=== PATIENT | male | born 1955 | race Caucasian/White ===

== ENCOUNTER 2017-02-20 13:07 | Emergency (ER) | payer MEDICARE ==
[~2017-02-20] VITALS: Ht 190.5 cm; Wt 117.0 kg
[~2017-02-20 13:07] MED LIST: ACET-3068 PO; DIAZ-351 PO; DIAZ10TA PO; FLO0.4C PO; PHEN-873 PO; VAL5T PO
[2017-02-20 14:19] VITALS: BP 122/84
[2017-02-20] MEDS ORDERED: oxymetazoline 15 ML nasal spray NS ONE (15:00)
[2017-02-20] MEDS ORDERED: AMOX-580 PO (15:28)
[2017-02-20] MEDS ORDERED: NEOM10DR45 OT (15:28)
[2017-02-20] MEDS ORDERED: AFRIN NS (15:28)
[2017-02-20] MEDS ORDERED: neomy sulf/polymyx B sulf/HC otic soln 10ml EACH EAR SCH (17:00)
== END 2017-02-20 15:54 | disposition home or self-care (01) ==
LOC: ER 13:08
DX: J01.00 Acute maxillary sinusitis, unspecified (principal); H66.93 Otitis media, unspecified, bilateral; R00.0 Tachycardia, unspecified; I10 Essential (primary) hypertension; E11.9 Type 2 diabetes mellitus without complications; G89.29 Other chronic pain; Z88.5 Allergy status to narcotic agent; Z88.8 Allergy status to other drugs, medicaments and biological substances; Z79.899 Other long term (current) drug therapy
CPT/HCPCS: 99283

== ENCOUNTER 2017-04-11 17:13 | Emergency (ER) | payer OTHER ==
[~2017-04-11] VITALS: Ht 190.5 cm; Wt 123.4 kg
[2017-04-11] MEDS ORDERED: ketorolac trometh inj. 60 MG/2 ML VIAL IM ONE (17:15)
[2017-04-11 17:17] VITALS: BP 158/97
== END 2017-04-11 17:28 | disposition home or self-care (01) ==
LOC: ER 17:14
DX: S39.012A Strain of muscle, fascia and tendon of lower back, initial encounter (principal); M62.830 Muscle spasm of back; G89.29 Other chronic pain; I10 Essential (primary) hypertension; E11.9 Type 2 diabetes mellitus without complications; Z88.5 Allergy status to narcotic agent; Z88.8 Allergy status to other drugs, medicaments and biological substances; Z79.899 Other long term (current) drug therapy; Z98.890 Other specified postprocedural states; X58.XXXA Exposure to other specified factors, initial encounter; Y93.89 Activity, other specified; Y92.89 Other specified places as the place of occurrence of the external cause; Y99.8 Other external cause status
CPT/HCPCS: 96372; 99283; J1885

== ENCOUNTER 2017-04-15 11:56 | Outpatient (CLI) | payer OTHER ==
[2017-04-15 12:52] LABS: BASOPHILS % (AUTO) 0.5 % (0-1); EOSINOPHILS # (AUTO) 0.2 X10'3 (0-0.9); HEMATOCRIT 44.2 % (42.0-52.0); HEMOGLOBIN 15.5 g/dl (14.0-17.9); LYMPHOCYTES # (AUTO) 2.1 X10'3 (1.1-4.8); LYMPHOCYTES % (AUTO) 27.2 % (21-51); MEAN CORPUSCULAR HEMOGLOBIN 32.3 PG (27.0-31.0); MEAN CORPUSCULAR HGB CONC 35.1 % (33.0-36.5); MEAN PLATELET VOLUME 8.6 FL (7.4-10.4); MONOCYTES # (AUTO) 0.6 X10'3 (0-0.9); MONOCYTES % (AUTO) 8.1 % (2-12); NEUTROPHILS # (AUTO) 4.7 X10'3 (1.8-7.7); NEUTROPHILS % (AUTO) 61.2 % (42-75); PLATELET COUNT 182 X10'3 (140-440); RED CELL DISTRIBUTION WIDTH 13.9 % (11.5-14.5); WHITE BLOOD COUNT 7.6 X10'3 (4.5-11.0)
[2017-04-15 12:59] LABS: CLARITY,URINE Clear (Clear); COLOR,URINE Yellow (Yellow); GLUCOSE, URINE Negative (Neg); KETONES,URINE Negative (Neg); LEUKOCYTE ESTERASE ,URINE Negative (Neg); NITRITES, URINE Negative (Neg); OCCULT BLOOD,URINE Negative (Neg); PROTEIN,URINE Negative (Neg)
[2017-04-15 13:02] LABS: UA COLLECTION TYPE NON-SPECIFIED
[2017-04-15 13:03] LABS: HEMOGLOBIN A1C 6.1 % (4.5-6.2)
[2017-04-15 13:18] LABS: ANION GAP 6 (8-16); BILIRUBIN,TOTAL 0.5 MG/DL (0.1-1.0); BLOOD UREA NITROGEN 27 MG/DL (7-18); BUN/CREATININE RATIO 25.5 (5.4-32.0); CHLORIDE 107 MMOL/L (99-107); CREATININE 1.06 MG/DL (0.60-1.10); GLUCOSE 89 MG/DL (70-104); POTASSIUM 4.4 MMOL/L (3.5-5.1); SODIUM 143 MMOL/L (135-145); TOTAL CARBON DIOXIDE 29.9 MMOL/L (24-32); eGFR 71 ML/MIN
[2017-04-15 13:19] LABS: ALANINE AMINOTRANSFERASE 39 U/L (12-78); ALBUMIN/GLOBULIN RATIO 1.3 (1.1-1.5); ALKALINE PHOSPHATASE 58 IU/L (46-116); ASPARTATE AMINO TRANSFERASE 20 U/L (10-37); CHOL/HDL RATIO 4.8 (0.00-4.99); CHOLESTEROL 177 MG/DL (0-200); HDL CHOLESTEROL 37 MG/DL (35-60); LDL CHOLESTEROL 123 MG/DL (50-100); TRIGLYCERIDES 168 MG/DL (20-135)
[2017-04-16 13:16] LABS: MICROALB/CRT, RATIO 10.4 mg/g creat (0.0-30.0)
== END 2017-04-15 23:59 ==
LOC: LAB 11:56
PROVIDERS: ATTEND Family Medicine
DX: E11.9 Type 2 diabetes mellitus without complications (principal); I10 Essential (primary) hypertension; N40.1 Benign prostatic hyperplasia with lower urinary tract symptoms
CPT/HCPCS: 36415; 80053; 80061; 81003; 82043; 82570; 83036; 84439; 84443; 85025

== ENCOUNTER → 2017-08-12 | Outpatient (CLI) | payer OTHER ==
[2017-08-13 12:52] LABS: BASOPHILS % (AUTO) 0.5 % (0-1); EOSINOPHILS # (AUTO) 0.1 X10'3 (0-0.9); EOSINOPHILS % (AUTO) 2.3 % (0-6); HEMATOCRIT 47.4 % (42.0-52.0); HEMOGLOBIN 16.3 g/dl (14.0-17.9); LYMPHOCYTES # (AUTO) 1.7 X10'3 (1.1-4.8); MEAN CORPUSCULAR HGB CONC 34.4 % (33.0-36.5); MEAN CORPUSCULAR VOLUME 93.2 FL (78-98); MEAN PLATELET VOLUME 8.6 FL (7.4-10.4); MONOCYTES # (AUTO) 0.5 X10'3 (0-0.9); MONOCYTES % (AUTO) 7.7 % (2-12); NEUTROPHILS # (AUTO) 3.6 X10'3 (1.8-7.7); NEUTROPHILS % (AUTO) 61.5 % (42-75); PLATELET COUNT 196 X10'3 (140-440); RED BLOOD COUNT 5.09 X10'6 (4.70-6.10); RED CELL DISTRIBUTION WIDTH 13.7 % (11.5-14.5); WHITE BLOOD COUNT 5.9 X10'3 (4.5-11.0)
[2017-08-13 13:03] LABS: CLARITY,URINE CLEAR (Clear); COLOR,URINE YELLOW (Yellow); GLUCOSE, URINE NEGATIVE (Neg); KETONES,URINE NEGATIVE (Neg); LEUKOCYTE ESTERASE ,URINE NEGATIVE (Neg); NITRITES, URINE NEGATIVE (Neg); OCCULT BLOOD,URINE NEGATIVE (Neg); PROTEIN,URINE NEGATIVE (Neg); UA COLLECTION TYPE VOIDED; UROBILINOGEN,URINE 0.2 E.U/dL (0.2-1.0)
[2017-08-13 13:05] LABS: HEMOGLOBIN A1C 6.4 % (4.5-6.2)
[2017-08-13 13:15] LABS: ALANINE AMINOTRANSFERASE 52 U/L (12-78); ALBUMIN 4.2 G/DL (3.4-5.0); ALBUMIN/GLOBULIN RATIO 1.3 (1.1-1.5); ALKALINE PHOSPHATASE 56 IU/L (46-116); ANION GAP 7 (8-16); ASPARTATE AMINO TRANSFERASE 21 U/L (10-37); BILIRUBIN,TOTAL 0.7 MG/DL (0.1-1.0); BLOOD UREA NITROGEN 20 MG/DL (7-18); BUN/CREATININE RATIO 18.3 (5.4-32.0); CALCIUM 9.4 MG/DL (8.5-10.1); CHLORIDE 104 MMOL/L (99-107); CHOL/HDL RATIO 5.1 (0.00-4.99); CHOLESTEROL 178 MG/DL (0-200); CREATININE 1.09 MG/DL (0.60-1.10); GLUCOSE 118 MG/DL (70-104); HDL CHOLESTEROL 35 MG/DL (35-60); LDL CHOLESTEROL 125 MG/DL (50-100); POTASSIUM 4.4 MMOL/L (3.5-5.1); SODIUM 139 MMOL/L (135-145); TOTAL CARBON DIOXIDE 28.5 MMOL/L (24-32); TOTAL PROTEIN 7.4 G/DL (6.4-8.2); TRIGLYCERIDES 97 MG/DL (20-135); eGFR 69 ML/MIN
== END ==
LOC: LAB 13:47
PROVIDERS: ATTEND Family Medicine
DX: E11.9 Type 2 diabetes mellitus without complications (principal); I10 Essential (primary) hypertension; E78.5 Hyperlipidemia, unspecified; R53.83 Other fatigue
CPT/HCPCS: 36415; 80053; 80061; 81003; 82043; 82570; 83036; 84439; 84443; 85025

== ENCOUNTER 2018-01-05 09:35 | Outpatient (CLI) | payer OTHER ==
[~2018-01-05 09:35] MED LIST changes: +DIAZ5TAB PO; +KETO10TA2 PO; +PHEN-786 PO; -PHEN-873 PO
[2018-01-05 10:48] LABS: BASOPHILS % (AUTO) 0.4 % (0-1); EOSINOPHILS # (AUTO) 0.1 X10'3 (0-0.9); HEMATOCRIT 47.1 % (42.0-52.0); HEMOGLOBIN 16.1 g/dl (14.0-17.9); LYMPHOCYTES # (AUTO) 1.6 X10'3 (1.1-4.8); LYMPHOCYTES % (AUTO) 24.8 % (21-51); MEAN CORPUSCULAR HEMOGLOBIN 31.7 PG (27.0-31.0); MEAN CORPUSCULAR HGB CONC 34.2 % (33.0-36.5); MEAN CORPUSCULAR VOLUME 92.8 FL (78-98); MEAN PLATELET VOLUME 8.9 FL (7.4-10.4); MONOCYTES # (AUTO) 0.4 X10'3 (0-0.9); MONOCYTES % (AUTO) 6.9 % (2-12); NEUTROPHILS # (AUTO) 4.2 X10'3 (1.8-7.7); NEUTROPHILS % (AUTO) 65.9 % (42-75); PLATELET COUNT 208 X10'3 (140-440); RED BLOOD COUNT 5.08 X10'6 (4.70-6.10); RED CELL DISTRIBUTION WIDTH 13.4 % (11.5-14.5); WHITE BLOOD COUNT 6.4 X10'3 (4.5-11.0)
[2018-01-05 10:56] LABS: ALANINE AMINOTRANSFERASE 63 U/L (12-78); ALBUMIN 3.8 G/DL (3.4-5.0); ALBUMIN/GLOBULIN RATIO 1.2 (1.1-1.5); ALKALINE PHOSPHATASE 62 IU/L (46-116); ANION GAP 8 (8-16); ASPARTATE AMINO TRANSFERASE 22 U/L (10-37); BILIRUBIN,TOTAL 0.7 MG/DL (0.1-1.0); BLOOD UREA NITROGEN 25 MG/DL (7-18); BUN/CREATININE RATIO 22.9 (5.4-32.0); CALCIUM 9.1 MG/DL (8.5-10.1); CHLORIDE 104 MMOL/L (99-107); CREATININE 1.09 MG/DL (0.60-1.10); GLUCOSE 134 MG/DL (70-104); POTASSIUM 4.1 MMOL/L (3.5-5.1); SODIUM 139 MMOL/L (135-145); TOTAL CARBON DIOXIDE 26.8 MMOL/L (24-32); eGFR 69 ML/MIN
[2018-01-05 15:23] LABS: MAGNESIUM 1.7 MG/DL (1.5-2.4)
[2018-01-05 15:27] LABS: HEMOGLOBIN A1C 6.5 % (4.5-6.2)
[2018-01-06 05:27] LABS: VITAMIN D, 25-HYDROXY 61.2 ng/mL (30.0-100.0)
[2018-01-06 06:19] LABS: PSA, ULTRASENSITIVE W/O SERIAL 2.46 ng/mL (0.000-4.000)
[2018-01-06 08:36] LABS: ESTRADIOL 40.7 pg/mL (7.6-42.6); SEX HORM BINDING GLOB, SERUM 39.1 nmol/L (19.3-76.4)
[2018-01-06 11:15] LABS: ACTH, PLASMA 35.2 pg/mL (7.2-63.3)
[2018-01-06] MEDS ORDERED: ACET1TAB12 PO (16:54)
[2018-01-06] MEDS ORDERED: DIAZ10TA PO (16:54)
[2018-01-06] MEDS ORDERED: KETO10TA2 PO (16:59)
== END 2018-01-05 23:59 | disposition home or self-care (01) ==
LOC: LAB 09:35
PROVIDERS: ATTEND Anesthesiology
DX: N40.0 Benign prostatic hyperplasia without lower urinary tract symptoms (principal); D50.9 Iron deficiency anemia, unspecified; R79.1 Abnormal coagulation profile; R35.1 Nocturia; E34.9 Endocrine disorder, unspecified; N53.9 Unspecified male sexual dysfunction; E29.9 Testicular dysfunction, unspecified; E29.1 Testicular hypofunction; E55.9 Vitamin D deficiency, unspecified; E27.40 Unspecified adrenocortical insufficiency; E27.9 Disorder of adrenal gland, unspecified; I10 Essential (primary) hypertension; E11.9 Type 2 diabetes mellitus without complications
CPT/HCPCS: 36415; 80053; 82024; 82306; 82533; 82670; 82679; 83036; 83735; 84153; 84270; 84305; 85025

== ENCOUNTER 2018-01-06 15:44 | Emergency (ER) | payer OTHER ==
[~2018-01-06] VITALS: Ht 190.5 cm; Wt 126.4 kg
[2018-01-06 15:48] VITALS: BP 151/94
[2018-01-06] MEDS ORDERED: ketorolac trometh inj. 60 MG/2 ML VIAL IM ONE (15:50)
[2018-01-06] MEDS ORDERED: DIAZ10TA PO (16:54)
[2018-01-06] MEDS ORDERED: ACET1TAB12 PO (16:54)
[2018-01-06] MEDS ORDERED: KETO10TA2 PO (16:59)
== END 2018-01-06 17:15 | disposition home or self-care (01) ==
LOC: ER 15:44
DX: M54.5 Low back pain (principal); I10 Essential (primary) hypertension; E11.9 Type 2 diabetes mellitus without complications; G89.29 Other chronic pain; Z98.890 Other specified postprocedural states; Z88.5 Allergy status to narcotic agent; Z88.8 Allergy status to other drugs, medicaments and biological substances; Z79.899 Other long term (current) drug therapy
CPT/HCPCS: 96372; 99283; J1885; 99284

== ENCOUNTER 2018-02-25 01:48 | Emergency (ER) | payer OTHER ==
[~2018-02-25] VITALS: Ht 190.5 cm; Wt 132.0 kg
[~2018-02-25 01:48] MED LIST changes: +ACET1TAB12 PO
[2018-02-25 01:52] VITALS: BP 109/67
[2018-02-25] MEDS ORDERED: DICL50TA8 PO (01:52)
[2018-02-25] MEDS ORDERED: ketorolac trometh inj. 60 MG/2 ML VIAL IM ONE (01:55)
== END 2018-02-25 02:40 | disposition home or self-care (01) ==
LOC: ER 01:49
DX: M25.512 Pain in left shoulder (principal); I10 Essential (primary) hypertension; E11.9 Type 2 diabetes mellitus without complications; G89.29 Other chronic pain; Z98.890 Other specified postprocedural states; Z88.5 Allergy status to narcotic agent; Z88.8 Allergy status to other drugs, medicaments and biological substances; Z79.899 Other long term (current) drug therapy
CPT/HCPCS: 96372; 99283; J1885

== ENCOUNTER 2018-05-03 17:31 | Emergency (ER) | payer OTHER ==
[~2018-05-03] VITALS: Ht 190.5 cm; Wt 126.0 kg
[~2018-05-03 17:31] MED LIST changes: +DICL50TA8 PO
[2018-05-03 17:34] VITALS: BP 197/95
[2018-05-03] MEDS ORDERED: HYDR-3965 PO (18:31)
[2018-05-03] MEDS ORDERED: TETanus/Pertussis (Acell)/Diphther VAC/PF (Tdap-Adult) 0.5ml syringe IM ONE (18:35)
[2018-05-03] MEDS ORDERED: LIDOcaine 1% w/epiNEPHrine 1:200,000 30ml vial IM ONE (18:35)
[2018-05-04] MEDS ORDERED: LOSA1TAB9 PO (16:00)
[2018-05-04] MEDS ORDERED: METF500T PO (16:00)
== END 2018-05-03 18:52 | disposition home or self-care (01) ==
LOC: ER 17:31
DX: S61.011A Laceration without foreign body of right thumb without damage to nail, initial encounter (principal); I10 Essential (primary) hypertension; E11.9 Type 2 diabetes mellitus without complications; G89.29 Other chronic pain; Z98.890 Other specified postprocedural states; Z88.5 Allergy status to narcotic agent; Z88.8 Allergy status to other drugs, medicaments and biological substances; Z79.899 Other long term (current) drug therapy; W26.8XXA Contact with other sharp object(s), not elsewhere classified, initial encounter; Y93.89 Activity, other specified; Y92.89 Other specified places as the place of occurrence of the external cause; Y99.8 Other external cause status
CPT/HCPCS: 12002; 90471; 90715; 99283

== ENCOUNTER 2018-05-05 05:25 | Day surgery (SDC) | payer OTHER ==
[~2018-05-05] VITALS: Ht 190.5 cm; Wt 127.1 kg
[~2018-05-05 05:25] MED LIST changes: -ACET-3068 PO; -ACET1TAB12 PO; -DIAZ-351 PO; -DIAZ10TA PO; -DIAZ5TAB PO; +HYDR-3965 PO; -KETO10TA2 PO; +LOSA1TAB9 PO; +METF500T PO; -PHEN-786 PO; +ringers solution, lacted 1,000 ML IV SCH
[2018-05-05] MEDS ORDERED: ceFAZolin 2gm in dextrose, iso 100 ML IV ONE (05:30)
[2018-05-05] MEDS ORDERED: famotidine 20mg tablet PO ONE (05:30)
[2018-05-05] MEDS ORDERED: FINA5TAB11 PO (06:12)
[2018-05-05] MEDS ORDERED: BUPIVAcaine/PF 2.5mg/ml (0.25%) 10ml vial ONE (06:50)
[2018-05-05 06:53] LABS: BASOPHILS % (AUTO) 0.6 % (0-1); EOSINOPHILS # (AUTO) 0.3 X10'3 (0-0.9); EOSINOPHILS % (AUTO) 3.7 % (0-6); LYMPHOCYTES # (AUTO) 1.5 X10'3 (1.1-4.8); LYMPHOCYTES % (AUTO) 21.7 % (21-51); MEAN CORPUSCULAR HEMOGLOBIN 31.5 PG (27.0-31.0); MEAN CORPUSCULAR HGB CONC 33.6 g/dL (33.0-36.5); MEAN CORPUSCULAR VOLUME 93.6 FL (78-98); MEAN PLATELET VOLUME 8.8 FL (7.4-10.4); MONOCYTES # (AUTO) 0.6 X10'3 (0-0.9); MONOCYTES % (AUTO) 8.2 % (2-12); NEUTROPHILS # (AUTO) 4.6 X10'3 (1.8-7.7); NEUTROPHILS % (AUTO) 65.8 % (42-75); PRE OP HEMATOCRIT 52.8 % (42.0-52.0); PRE OP HEMOGLOBIN 17.8 g/dL (14.0-17.9); PRE OP PLATELET COUNT 186 X10'3 (140-440); RED BLOOD COUNT 5.64 X10'6 (4.70-6.10); RED CELL DISTRIBUTION WIDTH 13.9 % (11.5-14.5)
[2018-05-05] MEDS ORDERED: LIDOcaine 0.5% (5mg/ml) 50ml vial ONE (06:56)
[2018-05-05] MEDS ORDERED: fentaNYL/PF 50MCG/1 ML 2ML syringe ONE (07:06)
[2018-05-05] MEDS ORDERED: MIDAZolam 5mg/5ml vial ONE (07:07)
[2018-05-05 07:09] LABS: ALBUMIN 3.7 G/DL (3.4-5.0); ALBUMIN/GLOBULIN RATIO 1.2 (1.1-1.5); ALKALINE PHOSPHATASE 67 IU/L (46-116); BLOOD UREA NITROGEN 21 MG/DL (7-18); BUN/CREATININE RATIO 17.6 (5.4-32.0); CALCIUM 9.2 MG/DL (8.5-10.1); CHLORIDE 104 MMOL/L (99-107); CREATININE 1.19 MG/DL (0.60-1.10); PRE OP ALT 38 U/L (30-65); PRE OP ANION GAP 8 (8-16); PRE OP AST 16 U/L (10-37); PRE OP BILIRUB, TOTAL 0.6 MG/DL (0.0-1.0); PRE OP GLUCOSE 125 MG/DL (70-104); PRE OP POTASSIUM 4.3 MMOL/L (3.4-5.1); PRE OP SODIUM 140 MMOL/L (135-145); TOTAL PROTEIN 6.8 G/DL (6.4-8.2); eGFR 62 ML/MIN
[2018-05-05] MEDS ORDERED: LIDOcaine 1%/PF 5ML 10 MG/ML VIAL ONE (07:41)
[2018-05-05] MEDS ORDERED: propofol inj 20 ML IV ONE (07:41)
[2018-05-05] MEDS ORDERED: hydrALAZINE 20mg/ml inj. IV ONE (07:41)
[2018-05-05] MEDS ORDERED: ringers solution, lacted 1,000 ML IV SCH (07:48)
[2018-05-05] MEDS ORDERED: ondansetron/PF 4mg/2ml inj IV PRN (07:50)
[2018-05-05] MEDS ORDERED: morphine 4 MG/ML inj SYRINge IV PRN ×2 (07:50)
[2018-05-05] MEDS ORDERED: meperidine/PF 25mg/ml syringe IV PRN ×3 (07:50)
[2018-05-05] MEDS ORDERED: proCHLORperazine 10 MG/2 ml inj IV PRN (07:50)
[2018-05-05 08:02] VITALS: BP 141/78
--- NOTE | 2018-05-05 08:02 | NUR ---
Received from OR via [facility] , accompanied by Anesthesiologist ARIADNE and report given by Anesthesiolgist. PATIENT WITH 20G PIV IN LEFT UE RUNNING LR AT 100. DENIES PAIN. SPLINT TO RIGHT UE WITH NO DRAINAGE PRESENT. PATIENT VSS. Addendum: 05/05/18 at 0811 by Anton Griffin RN, RN Amended: Links added.
[2018-05-05 08:12] VITALS: BP 113/70
[2018-05-05 08:22] VITALS: BP 132/75
[2018-05-05 08:32] VITALS: BP 134/71
[2018-05-05 10:47] VITALS: BP 143/93
[2018-05-05 10:50] VITALS: BP 143/93
== END 2018-05-05 08:42 | disposition home or self-care (01) ==
LOC: PAS 05:25
PROVIDERS: ATTEND Orthopaedic Surgery Hand Surgery
DX: S66.021A Laceration of long flexor muscle, fascia and tendon of right thumb at wrist and hand level, initial encounter (principal); G47.30 Sleep apnea, unspecified; E11.9 Type 2 diabetes mellitus without complications; Y93.89 Activity, other specified; Y92.89 Other specified places as the place of occurrence of the external cause; Y99.8 Other external cause status; W45.8XXA Other foreign body or object entering through skin, initial encounter; Z79.899 Other long term (current) drug therapy; Z88.8 Allergy status to other drugs, medicaments and biological substances; Z98.890 Other specified postprocedural states; M54.5 Low back pain; G89.29 Other chronic pain
CPT/HCPCS: 26356; 36415; 80053; 82948; 85025; 93005; A6222; A6449; J0360; J0690; J2001; J2250; J2704; J3010; J3490; J7120; A7000

== ENCOUNTER 2018-07-11 08:24 | Outpatient (CLI) | payer OTHER ==
[~2018-07-11 08:24] MED LIST changes: -DICL50TA8 PO; +FINA5TAB11 PO; -HYDR-3965 PO; -ringers solution, lacted 1,000 ML IV SCH
[2018-07-11 09:10] LABS: BASOPHILS # (AUTO) 0.1 X10'3 (0-0.2); BASOPHILS % (AUTO) 0.9 % (0-1); EOSINOPHILS # (AUTO) 0.1 X10'3 (0-0.9); EOSINOPHILS % (AUTO) 2.4 % (0-6); HEMOGLOBIN 16.7 g/dl (14.0-17.9); LYMPHOCYTES # (AUTO) 1.1 X10'3 (1.1-4.8); LYMPHOCYTES % (AUTO) 18.7 % (21-51); MEAN CORPUSCULAR HEMOGLOBIN 31.6 PG (27.0-31.0); MEAN CORPUSCULAR HGB CONC 34.7 g/dL (33.0-36.5); MEAN PLATELET VOLUME 8.5 FL (7.4-10.4); MONOCYTES # (AUTO) 0.5 X10'3 (0-0.9); NEUTROPHILS # (AUTO) 4.1 X10'3 (1.8-7.7); PLATELET COUNT 193 X10'3 (140-440); RED BLOOD COUNT 5.27 X10'6 (4.70-6.10); RED CELL DISTRIBUTION WIDTH 15.3 % (11.5-14.5)
[2018-07-11 09:31] LABS: ALANINE AMINOTRANSFERASE 47 U/L (12-78); ALBUMIN 3.9 G/DL (3.4-5.0); ALBUMIN/GLOBULIN RATIO 1.2 (1.1-1.5); ALKALINE PHOSPHATASE 60 IU/L (46-116); ANION GAP 7 (8-16); ASPARTATE AMINO TRANSFERASE 22 U/L (10-37); BILIRUBIN,TOTAL 0.6 MG/DL (0.1-1.0); BLOOD UREA NITROGEN 17 MG/DL (7-18); BUN/CREATININE RATIO 14.3 (5.4-32.0); CHLORIDE 104 MMOL/L (99-107); CREATININE 1.19 MG/DL (0.60-1.10); GLUCOSE 110 MG/DL (70-104); SODIUM 138 MMOL/L (135-145); TOTAL CARBON DIOXIDE 27.2 MMOL/L (24-32); TOTAL PROTEIN 7.2 G/DL (6.4-8.2); eGFR 62 ML/MIN
[2018-07-12 08:18] LABS: ESTRADIOL 66.7 pg/mL (7.6-42.6)
[2018-07-12 13:33] LABS: PSA, ULTRASENSITIVE W/O SERIAL 5.56 ng/mL (0.000-4.000)
== END 2018-07-11 23:59 | disposition home or self-care (01) ==
LOC: LAB 08:24
PROVIDERS: ATTEND Anesthesiology
DX: D50.9 Iron deficiency anemia, unspecified (principal); N40.0 Benign prostatic hyperplasia without lower urinary tract symptoms; E29.1 Testicular hypofunction; R68.89 Other general symptoms and signs
CPT/HCPCS: 36415; 80053; 82670; 82679; 83036; 83735; 84153; 85025

== ENCOUNTER 2018-09-15 08:20 | Outpatient (CLI) | payer OTHER ==
[2018-09-15 08:50] LABS: BASOPHILS # (AUTO) 0.1 X10'3 (0-0.2); EOSINOPHILS # (AUTO) 0.2 X10'3 (0-0.9); EOSINOPHILS % (AUTO) 3.2 % (0-6); HEMATOCRIT 48.8 % (42.0-52.0); HEMOGLOBIN 16.6 g/dl (14.0-17.9); LYMPHOCYTES # (AUTO) 1.5 X10'3 (1.1-4.8); LYMPHOCYTES % (AUTO) 22.8 % (21-51); MEAN CORPUSCULAR HEMOGLOBIN 31.9 PG (27.0-31.0); MEAN CORPUSCULAR HGB CONC 34.1 g/dL (33.0-36.5); MEAN CORPUSCULAR VOLUME 93.6 FL (78-98); MONOCYTES # (AUTO) 0.4 X10'3 (0-0.9); MONOCYTES % (AUTO) 6.2 % (2-12); NEUTROPHILS # (AUTO) 4.5 X10'3 (1.8-7.7); NEUTROPHILS % (AUTO) 66.8 % (42-75); PLATELET COUNT 182 X10'3 (140-440); RED BLOOD COUNT 5.22 X10'6 (4.70-6.10); RED CELL DISTRIBUTION WIDTH 14.9 % (11.5-14.5); WHITE BLOOD COUNT 6.8 X10'3 (4.5-11.0)
[2018-09-15 09:17] LABS: ALANINE AMINOTRANSFERASE 36 U/L (12-78); ALBUMIN 3.8 G/DL (3.4-5.0); ALBUMIN/GLOBULIN RATIO 1.2 (1.1-1.5); ALKALINE PHOSPHATASE 60 IU/L (46-116); ANION GAP 9 (8-16); ASPARTATE AMINO TRANSFERASE 16 U/L (10-37); BILIRUBIN,TOTAL 0.6 MG/DL (0.1-1.0); BLOOD UREA NITROGEN 22 MG/DL (7-18); BUN/CREATININE RATIO 17.7 (5.4-32.0); CALCIUM 9.2 MG/DL (8.5-10.1); CHLORIDE 104 MMOL/L (99-107); CREATININE 1.24 MG/DL (0.60-1.10); GLUCOSE 193 MG/DL (70-104); POTASSIUM 4.1 MMOL/L (3.5-5.1); SODIUM 139 MMOL/L (135-145); TOTAL CARBON DIOXIDE 26.3 MMOL/L (24-32); eGFR 59 ML/MIN
[2018-09-16 13:09] LABS: PSA, ULTRASENSITIVE W/O SERIAL 4.09 ng/mL (0.000-4.000)
== END 2018-09-15 23:59 | disposition home or self-care (01) ==
LOC: LAB 08:20
PROVIDERS: ATTEND Anesthesiology
DX: D50.9 Iron deficiency anemia, unspecified (principal); R68.89 Other general symptoms and signs; E29.1 Testicular hypofunction; N40.0 Benign prostatic hyperplasia without lower urinary tract symptoms
CPT/HCPCS: 36415; 80053; 82670; 82679; 84153; 85025

== ENCOUNTER 2018-11-24 04:02 | Emergency (ER) | payer OTHER ==
[~2018-11-24] VITALS: Ht 190.5 cm; Wt 102.6 kg
[2018-11-24 04:03] VITALS: BP 149/96
[2018-11-24 04:26] LABS: UA COLLECTION TYPE VOIDED
[2018-11-24 04:27] LABS: CLARITY,URINE SLIGHTLY CLOUDY (Clear); COLOR,URINE YELLOW (Yellow); GLUCOSE, URINE 100 mg/dl (Neg); KETONES,URINE NEGATIVE (Neg); LEUKOCYTE ESTERASE ,URINE SMALL (Neg); NITRITES, URINE POSITIVE (Neg); OCCULT BLOOD,URINE NEGATIVE (Neg); PROTEIN,URINE NEGATIVE (Neg)
[2018-11-24 04:34] LABS: BACTERIA,URINE 3+ /HPF (Neg); MUCUS STRANDS NONE SEEN /LPF (Neg); RBC,URINE NONE SEEN /HPF (0-2); SQUAMOUS EPITHELIAL CELL,UR NONE SEEN /LPF (FEW)
[2018-11-24] MEDS ORDERED: nitrofuran/nitrofuran macrocrysal 100 MG capsule PO ONE (05:00)
[2018-11-24] MEDS ORDERED: phenazopyridine 100mg tablet PO ONE (05:00)
[2018-11-24] MEDS ORDERED: PHEN-716 PO (05:12)
[2018-11-24] MEDS ORDERED: NITR100C6 PO (05:12)
== END 2018-11-24 05:21 | disposition home or self-care (01) ==
LOC: ER 04:02
DX: N39.0 Urinary tract infection, site not specified (principal); I10 Essential (primary) hypertension; E11.9 Type 2 diabetes mellitus without complications; G89.29 Other chronic pain; Z98.890 Other specified postprocedural states; Z88.5 Allergy status to narcotic agent; Z88.8 Allergy status to other drugs, medicaments and biological substances; Z79.84 Long term (current) use of oral hypoglycemic drugs; Z79.899 Other long term (current) drug therapy
CPT/HCPCS: 81001; 87077; 87088; 87186; 99283

== ENCOUNTER 2018-12-03 00:45 | Emergency (ER) | payer OTHER ==
[~2018-12-03] VITALS: Ht 190.5 cm; Wt 132.0 kg
[~2018-12-03 00:45] MED LIST changes: +NITR100C6 PO; +PHEN-716 PO
[2018-12-03 00:46] VITALS: BP 158/103
[2018-12-03 01:37] LABS: CLARITY,URINE CLOUDY (Clear); COLOR,URINE AMBER (Yellow); GLUCOSE, URINE NEGATIVE (Neg); KETONES,URINE TRACE mg/dl (Neg); LEUKOCYTE ESTERASE ,URINE SMALL (Neg); NITRITES, URINE POSITIVE (Neg); OCCULT BLOOD,URINE SMALL (Neg); PH,URINE 6.5 (4.8-8.0); PROTEIN,URINE TRACE mg/dl (Neg)
[2018-12-03 01:39] LABS: UA COLLECTION TYPE CLN CATCH MIDSTREAM
[2018-12-03 01:46] LABS: BACTERIA,URINE 4+ /HPF (Neg); MUCUS STRANDS NONE SEEN /LPF (Neg); SQUAMOUS EPITHELIAL CELL,UR NONE SEEN /LPF (FEW); WBC,URINE 50-100 /HPF (0-4)
[2018-12-03] MEDS ORDERED: SULF1TAB49 PO (01:47)
--- NOTE | 2018-12-07 19:22 | NUR ---
ATTEMPTED TO CALL PATIENT WITH REGARD TO URINE CULTURE RESULT AND NEED FOR ABX MACROBID 100 MG PO BID X 7 DAYS.
== END 2018-12-03 01:58 | disposition home or self-care (01) ==
LOC: ER 00:46
DX: N39.0 Urinary tract infection, site not specified (principal); I10 Essential (primary) hypertension; G47.30 Sleep apnea, unspecified; E11.9 Type 2 diabetes mellitus without complications; G89.29 Other chronic pain; Z98.890 Other specified postprocedural states; Z88.5 Allergy status to narcotic agent; Z88.8 Allergy status to other drugs, medicaments and biological substances; Z79.899 Other long term (current) drug therapy; Z79.84 Long term (current) use of oral hypoglycemic drugs
CPT/HCPCS: 81001; 87077; 87088; 87186; 99283

== ENCOUNTER 2018-12-20 11:16 | Outpatient (CLI) | payer OTHER ==
[2018-12-20 12:10] LABS: BASOPHILS # (AUTO) 0.1 X10'3 (0-0.2); BASOPHILS % (AUTO) 0.8 % (0-1); EOSINOPHILS # (AUTO) 0.2 X10'3 (0-0.9); EOSINOPHILS % (AUTO) 3.6 % (0-6); HEMATOCRIT 51.6 % (42.0-52.0); HEMOGLOBIN 17.7 g/dl (14.0-17.9); LYMPHOCYTES # (AUTO) 1.3 X10'3 (1.1-4.8); LYMPHOCYTES % (AUTO) 19.7 % (21-51); MEAN CORPUSCULAR HEMOGLOBIN 32.1 PG (27.0-31.0); MEAN CORPUSCULAR HGB CONC 34.3 g/dL (33.0-36.5); MEAN CORPUSCULAR VOLUME 93.8 FL (78-98); MEAN PLATELET VOLUME 8.5 FL (7.4-10.4); MONOCYTES # (AUTO) 0.5 X10'3 (0-0.9); MONOCYTES % (AUTO) 7.2 % (2-12); NEUTROPHILS # (AUTO) 4.6 X10'3 (1.8-7.7); NEUTROPHILS % (AUTO) 68.7 % (42-75); PLATELET COUNT 185 X10'3 (140-440); RED CELL DISTRIBUTION WIDTH 14.2 % (11.5-14.5); WHITE BLOOD COUNT 6.8 X10'3 (4.5-11.0)
[2018-12-20 12:32] LABS: ALANINE AMINOTRANSFERASE 37 U/L (12-78); ALBUMIN 3.8 G/DL (3.4-5.0); ALBUMIN/GLOBULIN RATIO 1.1 (1.1-1.5); ALKALINE PHOSPHATASE 51 IU/L (46-116); ANION GAP 7 (8-16); ASPARTATE AMINO TRANSFERASE 22 U/L (10-37); BILIRUBIN,TOTAL 0.8 MG/DL (0.1-1.0); BLOOD UREA NITROGEN 26 MG/DL (7-18); BUN/CREATININE RATIO 21.3 (5.4-32.0); CHLORIDE 105 MMOL/L (99-107); CREATININE 1.22 MG/DL (0.60-1.10); GLUCOSE 121 MG/DL (70-104); POTASSIUM 4.1 MMOL/L (3.5-5.1); SODIUM 139 MMOL/L (135-145); TOTAL CARBON DIOXIDE 27.2 MMOL/L (24-32); TOTAL PROTEIN 7.3 G/DL (6.4-8.2); eGFR 60 ML/MIN
[2018-12-20 12:46] LABS: MAGNESIUM 1.9 MG/DL (1.5-2.4)
[2018-12-20 12:52] LABS: HEMOGLOBIN A1C 6.2 % (4.5-6.2)
[2018-12-21 07:19] LABS: ESTRADIOL 28.1 pg/mL (7.6-42.6)
[2018-12-21 11:54] LABS: PSA, ULTRASENSITIVE W/O SERIAL 6.96 ng/mL (0.000-4.000)
== END 2018-12-20 23:59 | disposition home or self-care (01) ==
LOC: LAB 11:16
PROVIDERS: ATTEND Anesthesiology
DX: D50.9 Iron deficiency anemia, unspecified (principal); E29.1 Testicular hypofunction; E29.9 Testicular dysfunction, unspecified; N40.0 Benign prostatic hyperplasia without lower urinary tract symptoms; I10 Essential (primary) hypertension; R68.89 Other general symptoms and signs; R79.1 Abnormal coagulation profile; R73.01 Impaired fasting glucose; R53.81 Other malaise; R53.83 Other fatigue
CPT/HCPCS: 36415; 80053; 82670; 82679; 83036; 83735; 84153; 85025

== ENCOUNTER 2019-01-01 06:45 | Outpatient (CLI) | payer OTHER ==
[2019-01-02 11:48] LABS: % FREE PSA 22.8 % (.); PSA, FREE 1.3 ng/mL
== END 2019-01-01 23:59 | disposition home or self-care (01) ==
LOC: LAB 06:45
PROVIDERS: ATTEND Anesthesiology
DX: N40.0 Benign prostatic hyperplasia without lower urinary tract symptoms (principal); R97.20 Elevated prostate specific antigen [PSA]; I10 Essential (primary) hypertension; E11.9 Type 2 diabetes mellitus without complications
CPT/HCPCS: 36415; 84153; 84154

== ENCOUNTER 2019-02-07 08:01 | Outpatient (CLI) | payer OTHER ==
[2019-02-07 08:56] LABS: BASOPHILS % (AUTO) 0.8 % (0-1); EOSINOPHILS # (AUTO) 0.3 X10'3 (0-0.9); EOSINOPHILS % (AUTO) 4.4 % (0-6); HEMATOCRIT 49.9 % (42.0-52.0); HEMOGLOBIN 17.5 g/dl (14.0-17.9); LYMPHOCYTES # (AUTO) 1.6 X10'3 (1.1-4.8); MEAN CORPUSCULAR HGB CONC 35.1 g/dL (33.0-36.5); MEAN CORPUSCULAR VOLUME 91.3 FL (78-98); MEAN PLATELET VOLUME 8.9 FL (7.4-10.4); MONOCYTES # (AUTO) 0.5 X10'3 (0-0.9); MONOCYTES % (AUTO) 7.8 % (2-12); NEUTROPHILS # (AUTO) 3.8 X10'3 (1.8-7.7); PLATELET COUNT 195 X10'3 (140-440); RED BLOOD COUNT 5.47 X10'6 (4.70-6.10); RED CELL DISTRIBUTION WIDTH 14.2 % (11.5-14.5); WHITE BLOOD COUNT 6.2 X10'3 (4.5-11.0)
[2019-02-07 08:57] LABS: ALANINE AMINOTRANSFERASE 35 U/L (12-78); ALBUMIN 3.9 G/DL (3.4-5.0); ALBUMIN/GLOBULIN RATIO 1.3 (1.1-1.5); ALKALINE PHOSPHATASE 52 IU/L (46-116); ANION GAP 6 (8-16); ASPARTATE AMINO TRANSFERASE 16 U/L (10-37); BILIRUBIN,TOTAL 0.6 MG/DL (0.1-1.0); BLOOD UREA NITROGEN 21 MG/DL (7-18); BUN/CREATININE RATIO 18.1 (5.4-32.0); CALCIUM 8.6 MG/DL (8.5-10.1); CHLORIDE 105 MMOL/L (99-107); CREATININE 1.16 MG/DL (0.60-1.10); GLUCOSE 119 MG/DL (70-104); MAGNESIUM 1.8 MG/DL (1.5-2.4); POTASSIUM 3.9 MMOL/L (3.5-5.1); SODIUM 139 MMOL/L (135-145); TOTAL CARBON DIOXIDE 28.5 MMOL/L (24-32); eGFR 64 ML/MIN
[2019-02-08 14:53] LABS: ESTRADIOL 14.2 pg/mL (7.6-42.6); PSA, ULTRASENSITIVE W/O SERIAL 5.35 ng/mL (0.000-4.000)
== END 2019-02-07 23:59 | disposition home or self-care (01) ==
LOC: LAB 08:01
PROVIDERS: ATTEND Anesthesiology
DX: D50.9 Iron deficiency anemia, unspecified (principal); R68.89 Other general symptoms and signs; R79.1 Abnormal coagulation profile; R73.01 Impaired fasting glucose; I10 Essential (primary) hypertension; N40.0 Benign prostatic hyperplasia without lower urinary tract symptoms; E29.1 Testicular hypofunction; E29.9 Testicular dysfunction, unspecified
CPT/HCPCS: 36415; 80053; 82670; 82679; 83735; 84153; 85025

== ENCOUNTER 2019-08-02 19:57 | Emergency (ER) | payer OTHER ==
[~2019-08-02] VITALS: Ht 190.5 cm; Wt 124.8 kg
[2019-08-02 19:59] VITALS: BP 160/95
[2019-08-02] MEDS ORDERED: ketorolac tromethamine 15mg/ml inj. IM ONE (20:10)
[2019-08-02] MEDS ORDERED: DICL100G30 TOP (20:25)
[2019-08-02] MEDS ORDERED: METH-360 PO (20:25)
== END 2019-08-02 20:31 | disposition home or self-care (01) ==
LOC: ER 19:57
DX: M54.5 Low back pain (principal); I10 Essential (primary) hypertension; E11.9 Type 2 diabetes mellitus without complications; G89.29 Other chronic pain; Z87.440 Personal history of urinary (tract) infections; Z98.890 Other specified postprocedural states; Z88.5 Allergy status to narcotic agent; Z88.8 Allergy status to other drugs, medicaments and biological substances; Z79.899 Other long term (current) drug therapy
CPT/HCPCS: 96372; 99283; J1885

== ENCOUNTER 2019-09-10 09:16 | Outpatient (CLI) | payer BC, OTHER ==
[~2019-09-10 09:16] MED LIST changes: +DICL100G30 TOP; +METH-360 PO
[2019-09-10 10:02] LABS: BASOPHILS % (AUTO) 0.7 % (0-1); EOSINOPHILS # (AUTO) 0.3 X10'3 (0-0.9); EOSINOPHILS % (AUTO) 4.3 % (0-6); HEMATOCRIT 51.3 % (42.0-52.0); HEMOGLOBIN 17.4 g/dl (14.0-17.9); LYMPHOCYTES # (AUTO) 1.2 X10'3 (1.1-4.8); LYMPHOCYTES % (AUTO) 20.2 % (21-51); MEAN CORPUSCULAR HEMOGLOBIN 32.5 PG (27.0-31.0); MEAN CORPUSCULAR HGB CONC 33.9 g/dL (33.0-36.5); MEAN CORPUSCULAR VOLUME 95.9 FL (78-98); MONOCYTES # (AUTO) 0.4 X10'3 (0-0.9); MONOCYTES % (AUTO) 7.6 % (2-12); NEUTROPHILS # (AUTO) 3.9 X10'3 (1.8-7.7); NEUTROPHILS % (AUTO) 67.2 % (42-75); PLATELET COUNT 158 X10'3 (140-440); RED BLOOD COUNT 5.34 X10'6 (4.70-6.10); RED CELL DISTRIBUTION WIDTH 13.8 % (11.5-14.5); WHITE BLOOD COUNT 5.8 X10'3 (4.5-11.0)
[2019-09-10 10:04] LABS: ALBUMIN 3.9 G/DL (3.4-5.0); ALBUMIN/GLOBULIN RATIO 1.2 (1.1-1.5); ANION GAP 7 (8-16); ASPARTATE AMINO TRANSFERASE 14 U/L (10-37); BILIRUBIN,TOTAL 0.5 MG/DL (0.1-1.0); BLOOD UREA NITROGEN 18 MG/DL (7-18); BUN/CREATININE RATIO 15.4 (5.4-32.0); CALCIUM 8.9 MG/DL (8.5-10.1); CHLORIDE 105 MMOL/L (99-107); CREATININE 1.17 MG/DL (0.60-1.10); GLUCOSE 113 MG/DL (70-104); MAGNESIUM 1.8 MG/DL (1.5-2.4); POTASSIUM 4.4 MMOL/L (3.5-5.1); SODIUM 138 MMOL/L (135-145); TOTAL CARBON DIOXIDE 26.2 MMOL/L (24-32); TOTAL PROTEIN 7.1 G/DL (6.4-8.2); eGFR 63 ML/MIN
[2019-09-10 10:05] LABS: ALANINE AMINOTRANSFERASE 29 U/L (12-78); ALKALINE PHOSPHATASE 55 IU/L (46-116)
[2019-09-11 16:22] LABS: PSA, ULTRASENSITIVE W/O SERIAL 5.35 ng/mL (0.000-4.000)
== END 2019-09-10 23:59 | disposition home or self-care (01) ==
LOC: LAB 09:16
PROVIDERS: ATTEND Anesthesiology
DX: E23.0 Hypopituitarism (principal)
CPT/HCPCS: 36415; 80053; 82670; 82679; 83036; 83735; 84153; 84305; 84410; 85025

== ENCOUNTER → 2019-11-29 | Outpatient (CLI) | payer BC ==
[2019-11-29 13:27] LABS: HEMOGLOBIN A1C 6.2 % (4.5-6.2)
[2019-11-29 13:33] LABS: ALANINE AMINOTRANSFERASE 38 U/L (12-78); ALBUMIN 4.1 G/DL (3.4-5.0); ALBUMIN/GLOBULIN RATIO 1.3 (1.1-1.5); ALKALINE PHOSPHATASE 69 IU/L (46-116); ANION GAP 3 (8-16); ASPARTATE AMINO TRANSFERASE 15 U/L (10-37); BILIRUBIN,TOTAL 0.6 MG/DL (0.1-1.0); BLOOD UREA NITROGEN 22 MG/DL (7-18); BUN/CREATININE RATIO 19.3 (5.4-32.0); CHLORIDE 107 MMOL/L (99-107); CREATININE 1.14 MG/DL (0.60-1.10); GLUCOSE 121 MG/DL (70-104); MAGNESIUM 2.2 MG/DL (1.5-2.4); POTASSIUM 4.5 MMOL/L (3.5-5.1); SODIUM 139 MMOL/L (135-145); TOTAL CARBON DIOXIDE 29.4 MMOL/L (24-32); TOTAL PROTEIN 7.3 G/DL (6.4-8.2); eGFR 65 ML/MIN
[2019-11-29 13:35] LABS: BASOPHILS # (AUTO) 0.1 X10'3 (0-0.2); BASOPHILS % (AUTO) 0.9 % (0-1); EOSINOPHILS # (AUTO) 0.3 X10'3 (0-0.9); EOSINOPHILS % (AUTO) 4.3 % (0-6); HEMATOCRIT 48.5 % (42.0-52.0); HEMOGLOBIN 16.2 g/dl (14.0-17.9); LYMPHOCYTES # (AUTO) 1.4 X10'3 (1.1-4.8); LYMPHOCYTES % (AUTO) 23.8 % (21-51); MEAN CORPUSCULAR HEMOGLOBIN 31.1 PG (27.0-31.0); MEAN CORPUSCULAR HGB CONC 33.5 g/dL (33.0-36.5); MEAN CORPUSCULAR VOLUME 92.9 FL (78-98); MEAN PLATELET VOLUME 8.8 FL (7.4-10.4); MONOCYTES # (AUTO) 0.5 X10'3 (0-0.9); NEUTROPHILS # (AUTO) 3.8 X10'3 (1.8-7.7); PLATELET COUNT 229 X10'3 (140-440); RED BLOOD COUNT 5.22 X10'6 (4.70-6.10); RED CELL DISTRIBUTION WIDTH 14.5 % (11.5-14.5)
[2019-12-01 14:40] LABS: ESTRADIOL 40.1 pg/mL (7.6-42.6); PSA, ULTRASENSITIVE W/O SERIAL 4.91 ng/mL (0.000-4.000)
== END | disposition home or self-care (01) ==
LOC: LAB 12:25
PROVIDERS: ATTEND Anesthesiology
DX: Z13.21 Encounter for screening for nutritional disorder (principal); N40.0 Benign prostatic hyperplasia without lower urinary tract symptoms; E55.9 Vitamin D deficiency, unspecified; R68.89 Other general symptoms and signs; D50.9 Iron deficiency anemia, unspecified; R79.1 Abnormal coagulation profile; R73.01 Impaired fasting glucose; I10 Essential (primary) hypertension; E29.1 Testicular hypofunction; E29.9 Testicular dysfunction, unspecified; R53.81 Other malaise; R53.83 Other fatigue
CPT/HCPCS: 36415; 80053; 82306; 82670; 82679; 83036; 83735; 84153; 84410; 85025

== ENCOUNTER 2020-01-23 00:02 | Outpatient (CLI) | payer OTHER | END 2020-01-23 23:59 | disposition home or self-care (01) | LOC: LAB 00:02 | PROVIDERS: ATTEND Internal Medicine Infectious Disease | DX: Z53.21 Procedure and treatment not carried out due to patient leaving prior to being seen by health care provider (principal) ==

== ENCOUNTER 2020-04-02 09:37 | Day surgery (SDC) | payer BC ==
[~2020-04-02] VITALS: Ht 191.8 cm; Wt 122.7 kg
[~2020-04-02 09:37] MED LIST changes: +DIAZ5TAB22 PO; -VAL5T PO
[2020-04-02] MEDS ORDERED: fentaNYL/PF 50MCG/1 ML 2ML syringe ONE (09:38)
[2020-04-02] MEDS ORDERED: MIDAZolam 1 MG/ML 5ML VIAL ONE (09:38)
[2020-04-02 09:43] VITALS: BP 177/82
[2020-04-02 10:35] VITALS: BP 138/64
[2020-04-02 10:45] VITALS: BP 169/69
[2020-04-02 10:55] VITALS: BP 131/86
[2020-04-02 11:05] VITALS: BP 140/74
== END 2020-04-02 11:25 | disposition home or self-care (01) ==
LOC: GI LAB 09:37
PROVIDERS: ATTEND Internal Medicine Gastroenterology
DX: Z12.11 Encounter for screening for malignant neoplasm of colon (principal); K57.30 Diverticulosis of large intestine without perforation or abscess without bleeding; K63.5 Polyp of colon
CPT/HCPCS: 45380; 99152; J2250; J3010; J7040; 99153; A4620

== ENCOUNTER 2020-05-07 12:32 | Outpatient (CLI) | payer BC ==
[~2020-05-07 12:32] MED LIST changes: -DIAZ5TAB22 PO; -DICL100G30 TOP; -METH-360 PO; -NITR100C6 PO; -PHEN-716 PO
[2020-05-07 13:13] LABS: BASOPHILS % (AUTO) 0.8 % (0-1); EOSINOPHILS # (AUTO) 0.2 X10'3 (0-0.9); EOSINOPHILS % (AUTO) 4.1 % (0-6); HEMATOCRIT 49.7 % (42.0-52.0); HEMOGLOBIN 16.6 g/dl (14.0-17.9); LYMPHOCYTES # (AUTO) 1.5 X10'3 (1.1-4.8); LYMPHOCYTES % (AUTO) 29.9 % (21-51); MEAN CORPUSCULAR HEMOGLOBIN 31.2 PG (27.0-31.0); MEAN CORPUSCULAR HGB CONC 33.4 g/dL (33.0-36.5); MEAN CORPUSCULAR VOLUME 93.4 FL (78-98); MEAN PLATELET VOLUME 8.9 FL (7.4-10.4); MONOCYTES # (AUTO) 0.4 X10'3 (0-0.9); MONOCYTES % (AUTO) 7.9 % (2-12); NEUTROPHILS # (AUTO) 2.9 X10'3 (1.8-7.7); NEUTROPHILS % (AUTO) 57.3 % (42-75); PLATELET COUNT 174 X10'3 (140-440); RED BLOOD COUNT 5.33 X10'6 (4.70-6.10); RED CELL DISTRIBUTION WIDTH 13.5 % (11.5-14.5); WHITE BLOOD COUNT 5.1 X10'3 (4.5-11.0)
[2020-05-07 14:23] LABS: ALANINE AMINOTRANSFERASE 60 U/L (12-78); ALBUMIN 3.8 G/DL (3.4-5.0); ALBUMIN/GLOBULIN RATIO 1.1 (1.1-1.5); ALKALINE PHOSPHATASE 53 IU/L (46-116); ANION GAP 1 (8-16); ASPARTATE AMINO TRANSFERASE 64 U/L (10-37); BILIRUBIN,TOTAL 0.8 MG/DL (0.1-1.0); BLOOD UREA NITROGEN 21 MG/DL (7-18); BUN/CREATININE RATIO 17.9 (5.4-32.0); CALCIUM 9.3 MG/DL (8.5-10.1); CHLORIDE 107 MMOL/L (99-107); CREATININE 1.17 MG/DL (0.60-1.10); GLUCOSE 132 MG/DL (70-104); MAGNESIUM 2.1 MG/DL (1.5-2.4); POTASSIUM 4.5 MMOL/L (3.5-5.1); SODIUM 138 MMOL/L (135-145); TOTAL CARBON DIOXIDE 29.7 MMOL/L (24-32); TOTAL PROTEIN 7.4 G/DL (6.4-8.2); eGFR 63 ML/MIN
== END 2020-05-07 23:59 | disposition home or self-care (01) ==
LOC: LAB 12:32
PROVIDERS: ATTEND Anesthesiology
DX: N40.0 Benign prostatic hyperplasia without lower urinary tract symptoms (principal); D50.9 Iron deficiency anemia, unspecified; E34.9 Endocrine disorder, unspecified; R35.1 Nocturia; E34.50 Androgen insensitivity syndrome, unspecified; N53.9 Unspecified male sexual dysfunction; E23.0 Hypopituitarism; E55.9 Vitamin D deficiency, unspecified; R73.01 Impaired fasting glucose
CPT/HCPCS: 36415; 80053; 82306; 82670; 82679; 83036; 83735; 84153; 84410; 85025

== ENCOUNTER 2020-08-20 10:36 | Outpatient (CLI) | payer BC ==
[2020-08-20 11:22] LABS: BASOPHILS # (AUTO) 0.1 X10'3 (0-0.2); BASOPHILS % (AUTO) 0.7 % (0-1); EOSINOPHILS # (AUTO) 0.2 X10'3 (0-0.9); EOSINOPHILS % (AUTO) 3.3 % (0-6); HEMOGLOBIN 17.7 g/dl (14.0-17.9); LYMPHOCYTES # (AUTO) 1.1 X10'3 (1.1-4.8); LYMPHOCYTES % (AUTO) 16.2 % (21-51); MEAN CORPUSCULAR HGB CONC 33.9 g/dL (33.0-36.5); MEAN CORPUSCULAR VOLUME 94.4 FL (78-98); MEAN PLATELET VOLUME 8.7 FL (7.4-10.4); MONOCYTES # (AUTO) 0.5 X10'3 (0-0.9); MONOCYTES % (AUTO) 7.4 % (2-12); NEUTROPHILS # (AUTO) 5.1 X10'3 (1.8-7.7); NEUTROPHILS % (AUTO) 72.4 % (42-75); PLATELET COUNT 189 X10'3 (140-440); RED BLOOD COUNT 5.51 X10'6 (4.70-6.10); RED CELL DISTRIBUTION WIDTH 14.2 % (11.5-14.5); WHITE BLOOD COUNT 7.1 X10'3 (4.5-11.0)
[2020-08-20 11:37] LABS: ALANINE AMINOTRANSFERASE 32 U/L (12-78); ALBUMIN 3.7 G/DL (3.4-5.0); ALBUMIN/GLOBULIN RATIO 1.2 (1.1-1.5); ALKALINE PHOSPHATASE 55 IU/L (46-116); ANION GAP 7 (8-16); ASPARTATE AMINO TRANSFERASE 15 U/L (10-37); BILIRUBIN,TOTAL 0.5 MG/DL (0.1-1.0); BLOOD UREA NITROGEN 19 MG/DL (7-18); BUN/CREATININE RATIO 16.4 (5.4-32.0); CALCIUM 8.6 MG/DL (8.5-10.1); CHLORIDE 108 MMOL/L (99-107); CREATININE 1.16 MG/DL (0.60-1.10); GLUCOSE 135 MG/DL (70-104); MAGNESIUM 1.7 MG/DL (1.5-2.4); POTASSIUM 4.3 MMOL/L (3.5-5.1); SODIUM 142 MMOL/L (135-145); TOTAL CARBON DIOXIDE 26.9 MMOL/L (24-32); TOTAL PROTEIN 6.8 G/DL (6.4-8.2); eGFR 63 ML/MIN
[2020-08-21 12:36] LABS: ESTRADIOL 53.1 pg/mL (7.6-42.6); INSULIN 19.7 uIU/mL (2.6-24.9); PSA, ULTRASENSITIVE W/O SERIAL 4.64 ng/mL (0.000-4.000)
== END 2020-08-20 23:59 | disposition home or self-care (01) ==
LOC: LAB 10:36
DX: R68.89 Other general symptoms and signs (principal); D50.9 Iron deficiency anemia, unspecified; R79.1 Abnormal coagulation profile; R73.01 Impaired fasting glucose; I10 Essential (primary) hypertension; N40.0 Benign prostatic hyperplasia without lower urinary tract symptoms; E29.1 Testicular hypofunction; E55.9 Vitamin D deficiency, unspecified; E29.9 Testicular dysfunction, unspecified; R53.81 Other malaise; R53.83 Other fatigue; Z13.21 Encounter for screening for nutritional disorder
CPT/HCPCS: 36415; 80053; 82306; 82670; 82679; 82950; 83036; 83525; 83735; 84153; 84410; 85025

== ENCOUNTER 2020-09-19 21:32 | Emergency (ER) | payer BC, OTHER ==
[~2020-09-19] VITALS: Ht 190.5 cm; Wt 127.3 kg
[2020-09-19 21:37] VITALS: BP 150/88
[2020-09-19] MEDS ORDERED: TETanus/Pertussis (Acell)/Diphther VAC/PF (Tdap-Adult) 0.5ml syringe IMVAC ONE (22:20)
== END 2020-09-19 23:20 | disposition home or self-care (01) ==
LOC: ER 21:32 → EEVIPCON 21:32 → ER 23:20
DX: S09.90XA Unspecified injury of head, initial encounter (principal); S00.81XA Abrasion of other part of head, initial encounter; I10 Essential (primary) hypertension; E11.9 Type 2 diabetes mellitus without complications; G89.29 Other chronic pain; Z20.3 Contact with and (suspected) exposure to rabies; Z77.21 Contact with and (suspected) exposure to potentially hazardous body fluids; Z87.440 Personal history of urinary (tract) infections; Z98.890 Other specified postprocedural states; Z88.5 Allergy status to narcotic agent; Z88.8 Allergy status to other drugs, medicaments and biological substances; Z79.899 Other long term (current) drug therapy; X58.XXXA Exposure to other specified factors, initial encounter; Y93.89 Activity, other specified; Y92.89 Other specified places as the place of occurrence of the external cause; Y99.8 Other external cause status
CPT/HCPCS: 90471; 90715; 99283

== ENCOUNTER 2020-12-13 11:15 | Emergency (ER) | payer BC, OTHER ==
[~2020-12-13] VITALS: Ht 190.5 cm; Wt 81.8 kg
[2020-12-13] MEDS ORDERED: CASIRIVIMAB/IMDEVIMAB inject. 10 ML in normal saline 100ml IV soln 100 ML IV ONE (13:15)
[2020-12-13] MEDS ORDERED: BAMLANIVIMAB 700MG, ETESEVIMAB 1,400MG in NS 100mL (Total vol 160ml) IV ONE (13:20)
[2020-12-13] MEDS ORDERED: DEXA6TAB6 PO (13:56)
[2020-12-13 15:30] VITALS: BP 107/79
== END 2020-12-13 15:33 | disposition home or self-care (01) ==
LOC: ER 11:16
DX: U07.1 COVID-19 (principal); R05.9 Cough, unspecified; I10 Essential (primary) hypertension; E11.9 Type 2 diabetes mellitus without complications; G89.29 Other chronic pain; Z98.890 Other specified postprocedural states; Z88.6 Allergy status to analgesic agent; Z88.8 Allergy status to other drugs, medicaments and biological substances; Z79.899 Other long term (current) drug therapy
CPT/HCPCS: 87635; 99283; C9803; M0245; Q0245; M0239; Q0239

== ENCOUNTER 2021-01-30 07:39 | Outpatient (CLI) | payer BC ==
[~2021-01-30 07:39] MED LIST changes: +DEXA6TAB6 PO
[2021-01-30 08:51] LABS: BASOPHILS % (AUTO) 0.6 % (0-1); EOSINOPHILS # (AUTO) 0.2 X10'3 (0-0.9); EOSINOPHILS % (AUTO) 2.7 % (0-6); LYMPHOCYTES # (AUTO) 1.5 X10'3 (1.1-4.8); LYMPHOCYTES % (AUTO) 25.9 % (21-51); MEAN CORPUSCULAR HEMOGLOBIN 31.7 PG (27.0-31.0); MEAN CORPUSCULAR HGB CONC 34.7 g/dL (33.0-36.5); MEAN CORPUSCULAR VOLUME 91.4 FL (78-98); MEAN PLATELET VOLUME 8.5 FL (7.4-10.4); MONOCYTES # (AUTO) 0.5 X10'3 (0-0.9); MONOCYTES % (AUTO) 8.8 % (2-12); NEUTROPHILS # (AUTO) 3.5 X10'3 (1.8-7.7); PLATELET COUNT 217 X10'3 (140-440); RED BLOOD COUNT 5.36 X10'6 (4.70-6.10); RED CELL DISTRIBUTION WIDTH 13.5 % (11.5-14.5); WHITE BLOOD COUNT 5.7 X10'3 (4.5-11.0)
[2021-01-30 09:04] LABS: ALANINE AMINOTRANSFERASE 45 U/L (12-78); ALBUMIN 4.1 G/DL (3.4-5.0); ALBUMIN/GLOBULIN RATIO 1.2 (1.1-1.5); ALKALINE PHOSPHATASE 57 IU/L (46-116); ANION GAP 8 (8-16); ASPARTATE AMINO TRANSFERASE 21 U/L (10-37); BILIRUBIN,TOTAL 0.5 MG/DL (0.1-1.0); BLOOD UREA NITROGEN 20 MG/DL (7-18); BUN/CREATININE RATIO 17.2 (5.4-32.0); CALCIUM 9.3 MG/DL (8.5-10.1); CHLORIDE 104 MMOL/L (99-107); CREATININE 1.16 MG/DL (0.60-1.10); GLUCOSE 135 MG/DL (70-104); POTASSIUM 4.1 MMOL/L (3.5-5.1); SODIUM 140 MMOL/L (135-145); TOTAL CARBON DIOXIDE 27.9 MMOL/L (24-32); TOTAL PROTEIN 7.6 G/DL (6.4-8.2); eGFR 63 ML/MIN
[2021-01-31 10:59] LABS: % FREE PSA 14.8 % (.); ESTRADIOL 14.1 pg/mL (7.6-42.6); PSA, FREE 1.23 ng/mL
== END 2021-01-30 23:59 | disposition home or self-care (01) ==
LOC: LAB 07:39
PROVIDERS: ATTEND Anesthesiology
DX: Z13.21 Encounter for screening for nutritional disorder (principal); R68.89 Other general symptoms and signs; R79.1 Abnormal coagulation profile; R73.01 Impaired fasting glucose; I10 Essential (primary) hypertension; N40.1 Benign prostatic hyperplasia with lower urinary tract symptoms; E29.1 Testicular hypofunction; E55.9 Vitamin D deficiency, unspecified; E29.9 Testicular dysfunction, unspecified; R53.81 Other malaise; R53.83 Other fatigue
CPT/HCPCS: 36415; 80053; 82670; 82679; 84153; 84154; 84410; 85025

== ENCOUNTER 2021-05-08 05:20 | Emergency (ER) | payer BC ==
[~2021-05-08] VITALS: Ht 190.5 cm; Wt 81.8 kg
[2021-05-08 06:00] VITALS: BP 152/87
[2021-05-08 06:23] LABS: CLARITY,URINE CLEAR (Clear); COLOR,URINE YELLOW (Yellow); GLUCOSE, URINE 500 mg/dl (Neg); KETONES,URINE NEGATIVE (Neg); LEUKOCYTE ESTERASE ,URINE NEGATIVE (Neg); NITRITES, URINE NEGATIVE (Neg); OCCULT BLOOD,URINE NEGATIVE (Neg); PROTEIN,URINE NEGATIVE (Neg); UROBILINOGEN,URINE 0.2 E.U/dL (0.2-1.0)
[2021-05-08 06:24] LABS: UA COLLECTION TYPE CLN CATCH MIDSTREAM
== END 2021-05-08 07:13 | disposition home or self-care (01) ==
LOC: ER 05:20
DX: R35.0 Frequency of micturition (principal); R30.0 Dysuria; I10 Essential (primary) hypertension; E11.9 Type 2 diabetes mellitus without complications; G89.29 Other chronic pain; Z87.440 Personal history of urinary (tract) infections; Z98.890 Other specified postprocedural states; Z88.5 Allergy status to narcotic agent; Z88.8 Allergy status to other drugs, medicaments and biological substances; Z79.899 Other long term (current) drug therapy
CPT/HCPCS: 81003; 82948; 99283

== ENCOUNTER 2021-07-12 02:54 | Emergency (ER) | payer SELFPAY ==
[~2021-07-12] VITALS: Ht 188 cm; Wt 129.0 kg
[2021-07-12] MEDS ORDERED: proparacaine 0.5% ophthalmic drops 15ml LEFTEYE ONE (03:10)
[2021-07-12] MEDS ORDERED: ERYT1OIN6 EACHEYE (03:25)
[2021-07-12] MEDS ORDERED: erythromycin ophthalmic ointment 1gm tube LEFTEYE ONE ×2 (03:30→03:45)
[2021-07-12 03:48] VITALS: BP 142/80
== END 2021-07-12 03:51 | disposition home or self-care (01) ==
LOC: ER 02:54
DX: H10.9 Unspecified conjunctivitis (principal); H57.12 Ocular pain, left eye; I10 Essential (primary) hypertension; E11.9 Type 2 diabetes mellitus without complications; G89.29 Other chronic pain; Z87.440 Personal history of urinary (tract) infections; Z98.890 Other specified postprocedural states; Z88.5 Allergy status to narcotic agent; Z88.8 Allergy status to other drugs, medicaments and biological substances; Z79.899 Other long term (current) drug therapy
CPT/HCPCS: 99283

== ENCOUNTER 2021-10-28 08:41 | Outpatient (CLI) | payer BC ==
[~2021-10-28 08:41] MED LIST changes: +LOSA-422 PO; -LOSA1TAB9 PO
[2021-10-28 09:16] LABS: CLARITY,URINE CLEAR (Clear); COLOR,URINE YELLOW (Yellow); GLUCOSE, URINE 250 mg/dl (Neg); KETONES,URINE TRACE mg/dl (Neg); LEUKOCYTE ESTERASE ,URINE NEGATIVE (Neg); NITRITES, URINE NEGATIVE (Neg); OCCULT BLOOD,URINE NEGATIVE (Neg); PROTEIN,URINE NEGATIVE (Neg); UROBILINOGEN,URINE 0.2 E.U/dL (0.2-1.0)
[2021-10-28 09:21] LABS: BASOPHILS # (AUTO) 0.1 X10'3 (0-0.2); BASOPHILS % (AUTO) 0.8 % (0-1); EOSINOPHILS # (AUTO) 0.3 X10'3 (0-0.9); EOSINOPHILS % (AUTO) 4.3 % (0-6); HEMATOCRIT 42.8 % (42.0-52.0); HEMOGLOBIN 14.6 g/dl (14.0-17.9); LYMPHOCYTES # (AUTO) 2.2 X10'3 (1.1-4.8); LYMPHOCYTES % (AUTO) 30.6 % (21-51); MEAN CORPUSCULAR HEMOGLOBIN 31.9 PG (27.0-31.0); MEAN CORPUSCULAR HGB CONC 34.1 g/dL (33.0-36.5); MEAN CORPUSCULAR VOLUME 93.6 FL (78-98); MEAN PLATELET VOLUME 8.4 FL (7.4-10.4); MONOCYTES # (AUTO) 0.6 X10'3 (0-0.9); MONOCYTES % (AUTO) 8.5 % (2-12); NEUTROPHILS % (AUTO) 55.8 % (42-75); PLATELET COUNT 225 X10'3 (140-440); RED BLOOD COUNT 4.57 X10'6 (4.70-6.10); RED CELL DISTRIBUTION WIDTH 13.8 % (11.5-14.5); WHITE BLOOD COUNT 7.2 X10'3 (4.5-11.0)
[2021-10-28 09:24] LABS: HEMOGLOBIN A1C 7.2 % (4.5-6.2)
[2021-10-28 09:29] LABS: ALANINE AMINOTRANSFERASE 24 U/L (12-78); ALBUMIN 3.6 G/DL (3.4-5.0); ALBUMIN/GLOBULIN RATIO 1.1 (1.1-1.5); ALKALINE PHOSPHATASE 100 IU/L (46-116); ANION GAP 9 (8-16); ASPARTATE AMINO TRANSFERASE 9 U/L (10-37); BILIRUBIN,TOTAL 0.2 MG/DL (0.1-1.0); BLOOD UREA NITROGEN 21 MG/DL (7-18); BUN/CREATININE RATIO 22.8 (5.4-32.0); CHLORIDE 105 MMOL/L (99-107); CREATININE 0.92 MG/DL (0.60-1.10); GLUCOSE 176 MG/DL (70-104); SODIUM 142 MMOL/L (135-145); TOTAL CARBON DIOXIDE 27.6 MMOL/L (24-32); TOTAL PROTEIN 6.8 G/DL (6.4-8.2); eGFR 83 ML/MIN
[2021-10-28 09:40] LABS: CHOL/HDL RATIO 6.5 (0.00-4.99); CHOLESTEROL 189 MG/DL (0-200); HDL CHOLESTEROL 29 MG/DL (35-60); LDL CHOLESTEROL 116 MG/DL (50-100); TRIGLYCERIDES 277 MG/DL (20-135)
[2021-10-28 09:52] LABS: UA COLLECTION TYPE CLN CATCH MIDSTREAM
[2021-10-29 12:54] LABS: % FREE PSA 27.7 % (.); PSA, FREE 1.08 ng/mL
== END 2021-10-28 23:59 | disposition home or self-care (01) ==
LOC: VAS 08:41
PROVIDERS: ATTEND Family Medicine
DX: I87.2 Venous insufficiency (chronic) (peripheral) (principal); Z00.01 Encounter for general adult medical examination with abnormal findings; E11.9 Type 2 diabetes mellitus without complications; R39.9 Unspecified symptoms and signs involving the genitourinary system; N40.1 Benign prostatic hyperplasia with lower urinary tract symptoms; B35.1 Tinea unguium; E78.5 Hyperlipidemia, unspecified
CPT/HCPCS: 36415; 80053; 80061; 81003; 82043; 82570; 83036; 84153; 84154; 84439; 84443; 85025; 93970

== ENCOUNTER 2021-11-29 13:08 | Inpatient (IN) | payer BC ==
[~2021-11-29] VITALS: Ht 190.5 cm; Wt 124.5 kg
[2021-11-29] MEDS ORDERED: acetaminophen 325mg tablet PO STA (13:25)
[2021-11-29] MEDS ORDERED: ringers solution, lacted 1,000 ML IV ONE ×2 (13:30→14:15)
[2021-11-29] MEDS ORDERED: ondansetron/PF 4mg/2ml inj IV ONE (13:30)
--- NOTE | 2021-11-29 13:36 | NUR ---
PT is resting quietly on gurney, IV to rt hand, LR infusing w/o, waiting for lab results
[2021-11-29 13:42] LABS: BASOPHILS % (AUTO) 0.2 % (0-1); EOSINOPHILS # (AUTO) 0.2 X10'3 (0-0.9); HEMATOCRIT 41.2 % (42.0-52.0); LYMPHOCYTES # (AUTO) 0.7 X10'3 (1.1-4.8); LYMPHOCYTES % (AUTO) 4.5 % (21-51); MEAN CORPUSCULAR HEMOGLOBIN 31.5 PG (27.0-31.0); MEAN CORPUSCULAR HGB CONC 33.9 g/dL (33.0-36.5); MEAN CORPUSCULAR VOLUME 92.9 FL (78-98); MONOCYTES # (AUTO) 1.3 X10'3 (0-0.9); NEUTROPHILS # (AUTO) 14.2 X10'3 (1.8-7.7); NEUTROPHILS % (AUTO) 86.3 % (42-75); PLATELET COUNT 213 X10'3 (140-440); RED BLOOD COUNT 4.43 X10'6 (4.70-6.10); RED CELL DISTRIBUTION WIDTH 13.8 % (11.5-14.5); WHITE BLOOD COUNT 16.5 X10'3 (4.5-11.0)
[2021-11-29 13:54] LABS: APTT 29 SECONDS (22-32)
[2021-11-29 13:56] LABS: ALANINE AMINOTRANSFERASE 23 U/L (12-78); ALBUMIN 3.8 G/DL (3.4-5.0); ALBUMIN/GLOBULIN RATIO 1.1 (1.1-1.5); ALKALINE PHOSPHATASE 78 IU/L (46-116); ANION GAP 12 (8-16); ASPARTATE AMINO TRANSFERASE 13 U/L (10-37); BILIRUBIN,TOTAL 0.6 MG/DL (0.1-1.0); BLOOD UREA NITROGEN 19 MG/DL (7-18); BUN/CREATININE RATIO 17.1 (5.4-32.0); CALCIUM 9.4 MG/DL (8.5-10.1); CHLORIDE 103 MMOL/L (99-107); CREATININE 1.11 MG/DL (0.60-1.10); GLUCOSE 225 MG/DL (70-104); POTASSIUM 4.2 MMOL/L (3.5-5.1); SODIUM 139 MMOL/L (135-145); TOTAL CARBON DIOXIDE 24.2 MMOL/L (24-32); TOTAL PROTEIN 7.2 G/DL (6.4-8.2); eGFR 66 ML/MIN
[2021-11-29 13:58] LABS: CLARITY,URINE CLEAR (Clear); COLOR,URINE YELLOW (Yellow); GLUCOSE, URINE NEGATIVE (Neg); KETONES,URINE 40 mg/dl (Neg); LEUKOCYTE ESTERASE ,URINE NEGATIVE (Neg); NITRITES, URINE NEGATIVE (Neg); OCCULT BLOOD,URINE NEGATIVE (Neg); PH,URINE 5.5 (4.8-8.0); PROTEIN,URINE TRACE mg/dl (Neg); UROBILINOGEN,URINE 0.2 E.U/dL (0.2-1.0)
[2021-11-29 14:00] LABS: UA COLLECTION TYPE CLN CATCH MIDSTREAM
[2021-11-29 14:03] LABS: WBC,URINE TNTC /HPF (0-4)
[2021-11-29 14:03] LABS: MAGNESIUM 1.5 MG/DL (1.5-2.4)
[2021-11-29 14:04] LABS: BACTERIA,URINE FEW /HPF (Neg); RBC,URINE NONE SEEN /HPF (0-2)
[2021-11-29 14:05] LABS: MUCUS STRANDS MODERATE /LPF (Neg); RENAL CELLS, URINE FEW /HPF; SQUAMOUS EPITHELIAL CELL,UR FEW /LPF (FEW); WBC CLUMPS,URINE MODERATE /HPF (NEGATIVE)
[2021-11-29] MEDS ORDERED: CefTRIAXone/D5W-Rocephin 1gm 50 ML IV ONE (14:15)
--- NOTE | 2021-11-29 15:05 | NUR ---
pt is resting quietly on bed, resp even and unlabored, 2nd liter LR infusing w/o
[2021-11-29] MEDS ORDERED: acetaminophen 650mg rectal suppository RC PRN (16:45)
[2021-11-29] MEDS ORDERED: ondansetron 4mg rapidly disintigrating tab PO PRN (16:45)
[2021-11-29] MEDS ORDERED: ondansetron/PF 4mg/2ml inj IV PRN (16:45)
[2021-11-29] MEDS ORDERED: magnesium 4gm in 100ml NS 100 ML IV PRN (16:45)
[2021-11-29] MEDS ORDERED: potassium CL 10mEq/100ml bag 100 ML IV PRN (16:45)
[2021-11-29] MEDS ORDERED: POTASSIUM BICARB 20meq eff tab 20 MEQ TABLET.EFF PO PRN ×2 (16:45)
[2021-11-29] MEDS ORDERED: magnesium Cl slow-release 64mg tablet PO PRN (16:45)
[2021-11-29] MEDS ORDERED: mag hydrox/Alum hydrox/simeth 30ml oral suspension PO PRN (16:45)
[2021-11-29] MEDS ORDERED: magnesium 2GM in 50ml NS 50 ML IV PRN (16:45)
[2021-11-29] MEDS ORDERED: magnesium hydroxide 30ml (MOM) UD suspension PO PRN (16:45)
[2021-11-29] MEDS ORDERED: acetaminophen 325mg tablet PO PRN ×2 (16:45)
[2021-11-29] MEDS ORDERED: dextrose 50%-water 50ml dispensing syringe IV PRN ×2 (17:10)
[2021-11-29] MEDS ORDERED: glucagon, human recombinant 1mg kit SUBCUT PRN (17:10)
[2021-11-29] MEDS ORDERED: insulin Lispro (HumaLOG) vial - multi-dose SQ SCH (17:10)
[2021-11-29] MEDS ORDERED: MESSAGE TO PHARMACY PO ONE (17:10)
[2021-11-29] MEDS ORDERED: DEXTROSE 15 GM of carb/4 tabs (each vial/BOTTLE has 4 tablets) PO PRN ×2 (17:10)
[2021-11-29 17:11] LABS: MAGNESIUM 1.5 MG/DL (1.5-2.4); POTASSIUM 4.3 MMOL/L (3.5-5.1)
--- NOTE | 2021-11-29 17:50 | NUR ---
Patient arrived to the floor via wheelchair. Patient was oriented to the room/ IV fluids started per MD orders Patient ambulated to the restroom. Ordered patient dinner.
--- NOTE | 2021-11-29 17:51 | NUR ---
Patient in room ED 16. I have received report from Dedra GRAYSON in ER via phone and had the opportunity to ask questions will assume patient care when patient comes to floor.
[2021-11-29] MEDS: normal saline 1000ml 1,000 ML IV SCH (18:12)
--- NOTE | 2021-11-29 18:15 | NUR ---
Patient report given to Hoda GRAYSON. All questions answered she will assume patient care. Per Dr Mendoza, Patient can be on a Regular diet. Dr Mendoza aware that patients A1C in october was 7.2 and blood glucose prior to dinner was 191. Dr Mendoza will address patients home medications as well
[2021-11-29 18:30] VITALS: BP 122/72
[2021-11-29] MEDS: K and/or MAG REPLACEMENT MC SCH (18:56)
[2021-11-29] MEDS ORDERED: DIAZ10TA4 PO (19:02)
[2021-11-29] MEDS ORDERED: TADA20TA PO (19:02)
[2021-11-29] MEDS ORDERED: LOSA1TAB41 PO (19:16)
[2021-11-29] MEDS: docusate sod 100mg capsule PO SCH (20:00)
[2021-11-29] MEDS: enoxaparin 40mg/0.4ml syringe SQ SCH (20:14)
[2021-11-29] MEDS ORDERED: diazepam 5mg tablet PO PRN (21:00)
[2021-11-29] MEDS: insulin glargine (Lantus) pen - multi-dose SQ SCH (21:00)
[2021-11-29 21:45] VITALS: BP 122/72
[2021-11-29] MEDS: temazepam 15mg capsule PO PRN (23:13)
[2021-11-30] MEDS: temazepam 15mg capsule PO PRN ×2 (02:14→21:30)
[2021-11-30] MEDS: normal saline 1000ml 1,000 ML IV SCH ×3 (05:40→17:05)
[2021-11-30 05:57] LABS: BASOPHILS % (AUTO) 0.3 % (0-1); EOSINOPHILS # (AUTO) 0.2 X10'3 (0-0.9); EOSINOPHILS % (AUTO) 2.1 % (0-6); HEMATOCRIT 36.8 % (42.0-52.0); HEMOGLOBIN 12.6 g/dl (14.0-17.9); LYMPHOCYTES # (AUTO) 1.5 X10'3 (1.1-4.8); LYMPHOCYTES % (AUTO) 14.4 % (21-51); MEAN CORPUSCULAR HEMOGLOBIN 32.1 PG (27.0-31.0); MEAN CORPUSCULAR HGB CONC 34.2 g/dL (33.0-36.5); MEAN PLATELET VOLUME 9.1 FL (7.4-10.4); MONOCYTES % (AUTO) 9.7 % (2-12); NEUTROPHILS # (AUTO) 7.7 X10'3 (1.8-7.7); NEUTROPHILS % (AUTO) 73.5 % (42-75); PLATELET COUNT 188 X10'3 (140-440); RED BLOOD COUNT 3.91 X10'6 (4.70-6.10); RED CELL DISTRIBUTION WIDTH 13.7 % (11.5-14.5); WHITE BLOOD COUNT 10.5 X10'3 (4.5-11.0)
[2021-11-30 06:00] VITALS: BP 98/66
[2021-11-30 06:13] LABS: ALANINE AMINOTRANSFERASE 17 U/L (12-78); ALBUMIN 2.8 G/DL (3.4-5.0); ALBUMIN/GLOBULIN RATIO 0.9 (1.1-1.5); ALKALINE PHOSPHATASE 67 IU/L (46-116); ANION GAP 7 (8-16); ASPARTATE AMINO TRANSFERASE 9 U/L (10-37); BILIRUBIN,TOTAL 0.3 MG/DL (0.1-1.0); BLOOD UREA NITROGEN 16 MG/DL (7-18); BUN/CREATININE RATIO 15.8 (5.4-32.0); CALCIUM 8.4 MG/DL (8.5-10.1); CHLORIDE 106 MMOL/L (99-107); CREATININE 1.01 MG/DL (0.60-1.10); GLUCOSE 195 MG/DL (70-104); MAGNESIUM 1.7 MG/DL (1.5-2.4); POTASSIUM 4.1 MMOL/L (3.5-5.1); SODIUM 141 MMOL/L (135-145); TOTAL CARBON DIOXIDE 27.6 MMOL/L (24-32); TOTAL PROTEIN 5.9 G/DL (6.4-8.2); eGFR 74 ML/MIN
--- NOTE | 2021-11-30 06:41 | NUR ---
Problems reprioritized. Patient report given, questions answered & plan of care reviewed with JAZMINE GRAYSON.
[2021-11-30] MEDS: K and/or MAG REPLACEMENT MC SCH ×2 (08:00→20:00)
[2021-11-30] MEDS: docusate sod 100mg capsule PO SCH ×2 (08:00→20:00)
[2021-11-30] MEDS ORDERED: TADALAFIL 20 MG PO SCH (08:00)
[2021-11-30] MEDS: CefTRIAXone/D5W-Rocephin 1gm 50 ML IV SCH (08:10)
[2021-11-30] MEDS: tamsulosin 0.4mg capsule PO SCH (08:10)
[2021-11-30] MEDS: finasteride 5mg tablet PO SCH (08:16)
--- NOTE | 2021-11-30 08:29 | NUR ---
PAGER ID: [phone] MESSAGE: Ryanne Hudson [phone] Re: Benigno 2318 [facility]/73 HR 91please call Addendum: 11/30/21 at 0834 by Ryanne Escobar RN Received orders for EKG and Echo. Echo paged PCT doing EKG
--- NOTE | 2021-11-30 09:17 | NUR ---
PAGER ID: [phone] MESSAGE: Ryanne Hudson [phone] Do you need me to bring EKG to you on [address] or wait til you come by ?
--- NOTE | 2021-11-30 09:48 | NUR ---
Diabetes consult: Pt w/ hx of DM A1c 7.2 per EMR. Pt states that he "knows all about diabetes management" and has had DM for years. He reports that he has gotten his A1c to pre-diabetes levels, though this is not reflected by current A1c. Pt declined verbal ed though left written DM ed w/ RD contact info at pt bedside. Addendum: 11/30/21 at [address] Amended: Links added.
[2021-11-30 10:00] VITALS: BP 95/70
[2021-11-30] MEDS ORDERED: MODA200T48 PO (15:16)
[2021-11-30] MEDS ORDERED: ZOLP10TA PO (15:16)
[2021-11-30] MEDS ORDERED: METF-1203 PO (15:16)
[2021-11-30] MEDS ORDERED: LOSA50TA64 PO (15:16)
[2021-11-30 18:30] VITALS: BP 130/76
--- NOTE | 2021-11-30 18:30 | NUR ---
Problems reprioritized. Patient report given, questions answered & plan of care reviewed with Mat moody.
[2021-11-30] MEDS: enoxaparin 40mg/0.4ml syringe SQ SCH (19:34)
[2021-11-30] MEDS: insulin glargine (Lantus) pen - multi-dose SQ SCH (21:00)
[2021-11-30 22:00] VITALS: BP 159/81
[2021-12-01] MEDS: normal saline 1000ml 1,000 ML IV SCH (01:47)
[2021-12-01] MEDS: tamsulosin 0.4mg capsule PO SCH ×2 (03:21→08:39)
[2021-12-01 06:00] VITALS: BP 130/75
[2021-12-01 06:35] LABS: BASOPHILS % (AUTO) 0.6 % (0-1); EOSINOPHILS # (AUTO) 0.4 X10'3 (0-0.9); EOSINOPHILS % (AUTO) 6.8 % (0-6); HEMATOCRIT 37.8 % (42.0-52.0); HEMOGLOBIN 12.8 g/dl (14.0-17.9); LYMPHOCYTES # (AUTO) 1.5 X10'3 (1.1-4.8); LYMPHOCYTES % (AUTO) 24.2 % (21-51); MEAN CORPUSCULAR HEMOGLOBIN 31.8 PG (27.0-31.0); MEAN CORPUSCULAR HGB CONC 33.9 g/dL (33.0-36.5); MEAN CORPUSCULAR VOLUME 93.7 FL (78-98); MEAN PLATELET VOLUME 8.6 FL (7.4-10.4); MONOCYTES # (AUTO) 0.5 X10'3 (0-0.9); NEUTROPHILS # (AUTO) 3.7 X10'3 (1.8-7.7); NEUTROPHILS % (AUTO) 60.4 % (42-75); PLATELET COUNT 195 X10'3 (140-440); RED BLOOD COUNT 4.03 X10'6 (4.70-6.10); RED CELL DISTRIBUTION WIDTH 13.7 % (11.5-14.5); WHITE BLOOD COUNT 6.1 X10'3 (4.5-11.0)
[2021-12-01 07:08] LABS: ALANINE AMINOTRANSFERASE 23 U/L (12-78); ALKALINE PHOSPHATASE 64 IU/L (46-116); ANION GAP 7 (8-16); ASPARTATE AMINO TRANSFERASE 16 U/L (10-37); BILIRUBIN,TOTAL 0.3 MG/DL (0.1-1.0); BLOOD UREA NITROGEN 14 MG/DL (7-18); BUN/CREATININE RATIO 14.4 (5.4-32.0); CALCIUM 8.6 MG/DL (8.5-10.1); CHLORIDE 109 MMOL/L (99-107); CREATININE 0.97 MG/DL (0.60-1.10); GLUCOSE 145 MG/DL (70-104); MAGNESIUM 1.9 MG/DL (1.5-2.4); POTASSIUM 4.4 MMOL/L (3.5-5.1); SODIUM 142 MMOL/L (135-145); TOTAL CARBON DIOXIDE 26.5 MMOL/L (24-32); TOTAL PROTEIN 6.1 G/DL (6.4-8.2); eGFR 78 ML/MIN
[2021-12-01] MEDS: K and/or MAG REPLACEMENT MC SCH (08:00)
[2021-12-01] MEDS: docusate sod 100mg capsule PO SCH (08:39)
[2021-12-01] MEDS: finasteride 5mg tablet PO SCH (08:39)
[2021-12-01] MEDS: CefTRIAXone/D5W-Rocephin 1gm 50 ML IV SCH (08:39)
[2021-12-01 10:00] VITALS: BP 135/88
[2021-12-01] MEDS ORDERED: CEFD300C3 PO ×3 (11:16→17:53)
--- NOTE | 2021-12-01 12:31 | NUR ---
IV taken out canula intact. Discharge packet given, and follow ups recommended for Dr. Zavaleta, urologist.
== END 2021-12-01 12:15 | disposition home or self-care (01) | DRG 871 ==
LOC: ER 13:08 → ED HOLD 16:47 → ORTHO 4S 18:08
PROVIDERS: ADMIT Family Medicine; ATTEND Family Medicine
DX: A41.9 Sepsis, unspecified organism (principal); N17.0 Acute kidney failure with tubular necrosis; N39.0 Urinary tract infection, site not specified; I47.1 Supraventricular tachycardia; Z20.822 Contact with and (suspected) exposure to COVID-19; E11.9 Type 2 diabetes mellitus without complications; E86.0 Dehydration; I10 Essential (primary) hypertension; G47.33 Obstructive sleep apnea (adult) (pediatric); N40.1 Benign prostatic hyperplasia with lower urinary tract symptoms; R35.0 Frequency of micturition; G89.29 Other chronic pain; M54.9 Dorsalgia, unspecified; I44.1 Atrioventricular block, second degree; I48.91 Unspecified atrial fibrillation; N32.0 Bladder-neck obstruction; Z87.440 Personal history of urinary (tract) infections; Z79.84 Long term (current) use of oral hypoglycemic drugs; Z88.5 Allergy status to narcotic agent; Z88.8 Allergy status to other drugs, medicaments and biological substances; Z79.899 Other long term (current) drug therapy
CPT/HCPCS: 36415; 71045; 74176; 80053; 81001; 82948; 83605; 83735; 83880; 84132; 84145; 84443; 84484; 85025; 85610; 85730; 87040; 87081; 87088; 87502; 87503; 87635; 93005; 93306; 99285; C9803; G0378; J0696; J1650; J1815; J2405; J7030; J7120

== ENCOUNTER 2022-03-31 12:13 | Outpatient (CLI) | payer BC ==
[~2022-03-31 12:13] MED LIST changes: +CEFD300C3 PO; -DEXA6TAB6 PO; +DIAZ10TA4 PO; -LOSA-422 PO; +LOSA50TA64 PO; +METF-1203 PO; -METF500T PO; +MODA200T48 PO; +TADA20TA PO; +ZOLP10TA PO
== END 2022-03-31 23:59 | disposition home or self-care (01) ==
LOC: LAB 12:13
PROVIDERS: ATTEND Urology
DX: N42.9 Disorder of prostate, unspecified (principal)
CPT/HCPCS: 36415; 84153; 84402; 84403

== ENCOUNTER 2022-09-01 08:21 | Outpatient (CLI) | payer BC | END 2022-09-01 23:59 | disposition home or self-care (01) | LOC: RAD 08:21 | PROVIDERS: ATTEND Family Medicine | DX: M19.012 Primary osteoarthritis, left shoulder (principal); M67.814 Other specified disorders of tendon, left shoulder; M25.512 Pain in left shoulder | CPT/HCPCS: 73221 ==

== ENCOUNTER 2022-11-02 17:06 | Emergency (ER) | payer BC ==
[~2022-11-02] VITALS: Ht 190.5 cm; Wt 135.0 kg
[2022-11-02 17:07] VITALS: TEMP 98.1
[2022-11-02 17:26] LABS: BILIRUBIN,URINE NEGATIVE (Neg); CLARITY,URINE CLOUDY (Clear); COLOR,URINE YELLOW (Yellow); GLUCOSE, URINE 100 mg/dl (Neg); KETONES,URINE NEGATIVE (Neg); LEUKOCYTE ESTERASE ,URINE SMALL (Neg); OCCULT BLOOD,URINE LARGE (Neg); PROTEIN,URINE 100 mg/dl (Neg)
[2022-11-02] MEDS ORDERED: ketorolac trometh inj. 60 MG/2 ML VIAL IM ONE (17:55)
[2022-11-02] MEDS ORDERED: ketorolac tromethamine 15mg/ml inj. IV ONE (17:55)
[2022-11-02] MEDS ORDERED: ketorolac tromethamine 15mg/ml inj. IM ONE (17:55)
[2022-11-02 17:59] LABS: NITRITES, URINE NEGATIVE (Neg); UA COLLECTION TYPE CLN CATCH MIDSTREAM
[2022-11-02 18:00] LABS: BACTERIA,URINE 1+ /HPF (Neg); RBC,URINE TNTC /HPF (0-2); WBC,URINE 30-50 /HPF (0-4)
[2022-11-02 18:01] LABS: SQUAMOUS EPITHELIAL CELL,UR FEW /LPF (FEW)
[2022-11-02 18:04] VITALS: BP 172/97; PULSE 92; RESP 17; O2SAT 95
[2022-11-02] MEDS ORDERED: cephalexin 250mg capsule PO ONE (18:10)
[2022-11-02] MEDS ORDERED: CEPH-585 PO (18:19)
[2022-11-02] MEDS ORDERED: TRAM50TA2 PO (18:19)
== END 2022-11-02 18:38 | disposition home or self-care (01) ==
LOC: EEVIPCON 17:07 → ER 17:07
DX: N39.0 Urinary tract infection, site not specified (principal); I10 Essential (primary) hypertension; E11.9 Type 2 diabetes mellitus without complications; Z88.5 Allergy status to narcotic agent; Z88.8 Allergy status to other drugs, medicaments and biological substances; Z79.2 Long term (current) use of antibiotics; Z79.899 Other long term (current) drug therapy
CPT/HCPCS: 81001; 87088; 96372; 99283; J1885

== ENCOUNTER 2022-12-09 06:04 | Emergency (ER) | payer BC ==
[~2022-12-09] VITALS: Ht 190.5 cm; Wt 106.8 kg
[~2022-12-09 06:04] MED LIST changes: +CEPH-585 PO; +TRAM50TA2 PO
[2022-12-09 06:13] VITALS: BP 168/103; PULSE 101; RESP 16; O2SAT 96
[2022-12-09] MEDS ORDERED: NIRM1TAB PO (06:31)
[2022-12-09 06:48] VITALS: TEMP 98
== END 2022-12-09 06:50 | disposition home or self-care (01) ==
LOC: ER 06:04
DX: U07.1 COVID-19 (principal); I10 Essential (primary) hypertension; E11.9 Type 2 diabetes mellitus without complications; G89.29 Other chronic pain; M54.9 Dorsalgia, unspecified; Z79.899 Other long term (current) drug therapy; Z88.5 Allergy status to narcotic agent; Z88.8 Allergy status to other drugs, medicaments and biological substances
CPT/HCPCS: 99283

== ENCOUNTER 2023-04-24 16:49 | Inpatient (IN) | payer BC, MEDICARE ==
[~2023-04-24] VITALS: Ht 182.9 cm; Wt 100.0 kg
[~2023-04-24 16:49] MED LIST changes: +NIRM1TAB PO
[2023-04-24] MEDS: fentaNYL/PF 50MCG/1 ML 2ML syringe IV ONE ×2 (16:57→20:26)
[2023-04-24] MEDS: ondansetron/PF 4mg/2ml inj IV ONE (16:57)
[2023-04-24] MEDS: normal saline 1000ML IV soln IVB ONE (17:04)
[2023-04-24 17:25] LABS: INR 1.1 INR; PROTHROMBIN TIME 11.9 SECONDS (9.0-12.0)
[2023-04-24 17:29] LABS: ALBUMIN 4.7 G/DL (3.4-5.0); ANION GAP 9 (8-16); BLOOD UREA NITROGEN 30 MG/DL (7-18); BUN/CREATININE RATIO 19.4 (10.0-20.0); CALCIUM 9.4 MG/DL (8.5-10.1); CHLORIDE 102 MMOL/L (99-107); CREATININE 1.55 MG/DL (0.60-1.10); GLUCOSE 161 MG/DL (70-104); LIPASE 19 U/L (16-77); POTASSIUM 4.2 MMOL/L (3.5-5.1); SODIUM 141 MMOL/L (135-145); TOTAL CARBON DIOXIDE 30.4 MMOL/L (24-32); eCRCL 51 ML/MIN; eGFR 45 ML/MIN
[2023-04-24 18:28] LABS: BASOPHILS % (AUTO) 0.2 % (0-1); EOSINOPHILS # (AUTO) 0.1 X10'3 (0-0.9); EOSINOPHILS % (AUTO) 0.4 % (0-6); HEMATOCRIT 57.4 % (42.0-52.0); LYMPHOCYTES # (AUTO) 0.5 X10'3 (1.1-4.8); MEAN CORPUSCULAR HEMOGLOBIN 30.1 PG (27.0-31.0); MEAN CORPUSCULAR HGB CONC 33.1 g/dL (33.0-36.5); MEAN PLATELET VOLUME 9.2 FL (7.4-10.4); MONOCYTES # (AUTO) 0.5 X10'3 (0-0.9); NEUTROPHILS # (AUTO) 16.7 X10'3 (1.8-7.7); NEUTROPHILS % (AUTO) 93.4 % (42-75); PLATELET COUNT 187 X10'3 (140-440); RED BLOOD COUNT 6.31 X10'6 (4.70-6.10); RED CELL DISTRIBUTION WIDTH 15.8 % (11.5-14.5); WHITE BLOOD COUNT 17.9 X10'3 (4.5-11.0)
[2023-04-24] MEDS: piperacillin/tazo 4.5gm/100ml 100 ML IV ONE (19:07)
[2023-04-24 19:31] LABS: BILIRUBIN,URINE SMALL (Neg); CLARITY,URINE CLEAR (Clear); COLOR,URINE AMBER (Yellow); GLUCOSE, URINE NEGATIVE (Neg); KETONES,URINE 15 mg/dl (Neg); LEUKOCYTE ESTERASE ,URINE NEGATIVE (Neg); OCCULT BLOOD,URINE NEGATIVE (Neg); PH,URINE 5.5 (4.8-8.0); PROTEIN,URINE 100 mg/dl (Neg)
[2023-04-24] MEDS ORDERED: magnesium 4gm in 100ml NS 100 ML IV PRN (19:50)
[2023-04-24] MEDS ORDERED: potassium Cl 20 mEq SR tablet PO PRN ×2 (19:50)
[2023-04-24] MEDS ORDERED: magnesium Cl slow-release 64mg tablet PO PRN (19:50)
[2023-04-24] MEDS ORDERED: HYDROcodone/acetaminophen 10/325mg tab PO PRN (19:50)
[2023-04-24] MEDS ORDERED: magnesium hydroxide 30ml (MOM) UD suspension PO PRN (19:50)
[2023-04-24] MEDS ORDERED: potassium Cl 40MEQ/1/2NS 520ml 520 ML IV PRN (19:50)
[2023-04-24] MEDS ORDERED: HYDROcodone/acetaminophen 5mg/325mg tablet PO PRN (19:50)
[2023-04-24] MEDS ORDERED: magnesium 2GM in 50ml NS 50 ML IV PRN (19:50)
[2023-04-24] MEDS ORDERED: acetaminophen 325mg tablet PO PRN ×2 (19:50)
[2023-04-24 19:51] LABS: UA COLLECTION TYPE URINAL
[2023-04-24 19:52] LABS: NITRITES, URINE NEGATIVE (Neg)
[2023-04-24 19:54] LABS: MUCUS STRANDS MANY /LPF (Neg); SQUAMOUS EPITHELIAL CELL,UR MODERATE /LPF (FEW)
[2023-04-24 19:56] LABS: BACTERIA,URINE 2+ /HPF (Neg); RBC,URINE 0-2 /HPF (0-2)
[2023-04-24] MEDS ORDERED: ringers solution, lacted 1,000 ML IV ONE (20:10)
[2023-04-24] MEDS ORDERED: fentaNYL/PF 50MCG/1 ML 2ML syringe IV PRN ×3 (20:15→21:25)
[2023-04-24] MEDS ORDERED: glucagon, human recombinant 1mg kit SUBCUT PRN (20:25)
[2023-04-24] MEDS: MESSAGE TO PHARMACY PO ONE (20:25)
[2023-04-24] MEDS ORDERED: dextrose 50%-water 50ml dispensing syringe IV PRN ×2 (20:25)
[2023-04-24] MEDS ORDERED: insulin Lispro (HumaLOG) vial - multi-dose SQ SCH (20:25)
[2023-04-24] MEDS ORDERED: DEXTROSE 15 GM of carb/4 tabs (each vial/BOTTLE has 4 tablets) PO PRN ×2 (20:25)
[2023-04-24] MEDS ORDERED: BUPIVAcaine 2.5mg/ml inj 50ml vial (contains preservative) ONE ×2 (21:01→22:08)
[2023-04-24 21:21] LABS: HEMOGLOBIN A1C 5.4 % (4.5-6.2)
[2023-04-24] MEDS ORDERED: labetalol 20mg/4ml (5mg/ml) syringe IV PRN (21:25)
[2023-04-24] MEDS ORDERED: hydrALAZINE 20mg/ml inj. IV PRN (21:25)
[2023-04-24] MEDS ORDERED: HYDROmorphone/PF 0.2 MG/ML SYRINGE IV PRN ×2 (21:25)
[2023-04-24] MEDS ORDERED: ondansetron/PF 4mg/2ml inj IV PRN (21:25)
[2023-04-24] MEDS ORDERED: meperidine/PF 25mg/ml syringe IV PRN (21:25)
[2023-04-24] MEDS ORDERED: ringers solution, lacted 1,000 ML IV SCH (21:25)
[2023-04-24] MEDS ORDERED: midazolam 1 mg/ML 2ml injection ONE (21:29)
[2023-04-24] MEDS ORDERED: sevoflurane 250ml liquid IH ONE (21:31)
[2023-04-24] MEDS ORDERED: fentaNYL /PF 50mcg/ml 5ml ampule ONE (21:31)
[2023-04-24] MEDS ORDERED: diazepam 5mg tablet PO PRN (21:40)
[2023-04-24] MEDS ORDERED: rocuronium 10mg/ml inj IV ONE (21:55)
[2023-04-24] MEDS ORDERED: propofol inj 20 ML IV ONE (21:55)
[2023-04-24] MEDS ORDERED: ondansetron/PF 4mg/2ml inj ONE (21:55)
[2023-04-24] MEDS ORDERED: ceFOXitin 1000 MG inj ONE ×2 (21:55)
[2023-04-24] MEDS ORDERED: dexamethasone sod phosphate 4mg/ml inj. ONE (21:55)
[2023-04-24] MEDS ORDERED: LIDOcaine 2% (20mg/ml) 5ml vial ONE (21:55)
[2023-04-24] MEDS ORDERED: BUPIVACAINE liposomal/PF 13.3 MG/ML vial IM ONE (22:08)
[2023-04-24] MEDS ORDERED: famotidine/PF 10 mg/ml inj IV ONE (22:20)
[2023-04-24] MEDS ORDERED: neostigmine methylsulfate 1 MG/ML 10ml vial ONE (22:43)
[2023-04-24] MEDS ORDERED: glycopyrrolate 0.2mg/ml inj ONE (22:43)
[2023-04-24 22:52] VITALS: BP 128/77; PULSE 95; RESP 11; O2SAT 96
[2023-04-24] MEDS: BUPIVAcaine/PF 2.5mg/ml (0.25%) 10ml vial ONE (22:58)
[2023-04-24 23:00] VITALS: BP 136/86; PULSE 96; RESP 13; O2SAT 94
[2023-04-24 23:10] VITALS: BP 152/91; PULSE 100; RESP 15; O2SAT 92
[2023-04-24] MEDS: acetaminophen 1,000mg/100ml IV 100 ML IV ONE (23:13)
[2023-04-24 23:20] VITALS: BP 122/75; PULSE 81; RESP 14; O2SAT 93
[2023-04-24] MEDS: K and/or MAG REPLACEMENT MC SCH (23:21)
[2023-04-24] MEDS: insulin glargine (Lantus) pen - multi-dose SQ SCH (23:22)
[2023-04-24 23:30] VITALS: BP_SYST 123; BP_SYST 134; BP_DIAS 67; BP_DIAS 76; PULSE 82; PULSE 86; RESP 15; RESP 18; TEMP 98.5; O2SAT 94; O2SAT 95
[2023-04-25] VITALS (7 sets, daily range): BP systolic 115–168; BP diastolic 59–101; PULSE 59–79; RESP 16–21; TEMP 96.9–98.4; O2SAT 93–99
[2023-04-25] MEDS: ketorolac trometh. 30mg/ml inj. IV ONE (00:01)
[2023-04-25] MEDS: ringers solution, lacted 1,000 ML IV SCH (00:01)
[2023-04-25] MEDS ORDERED: HYDROmorphone 1 mg/ml syringe IV PRN (01:25)
[2023-04-25] MEDS: HYDROmorphone 1 mg/ml syringe IV PRN (01:49)
[2023-04-25] MEDS ORDERED: losartan 50mg tablet PO SCH (08:00)
[2023-04-25 08:08] LABS: BASOPHILS % (AUTO) 0.1 % (0-1); EOSINOPHILS % (AUTO) 0 % (0-6); LYMPHOCYTES # (AUTO) 0.4 X10'3 (1.1-4.8); LYMPHOCYTES % (AUTO) 2.2 % (21-51); RED CELL DISTRIBUTION WIDTH 16.2 % (11.5-14.5)
[2023-04-25 08:09] LABS: MEAN CORPUSCULAR HEMOGLOBIN 30.1 PG (27.0-31.0); MEAN CORPUSCULAR HGB CONC 32.7 g/dL (33.0-36.5); MEAN CORPUSCULAR VOLUME 92.1 FL (78-98); MEAN PLATELET VOLUME 9.6 FL (7.4-10.4); MONOCYTES # (AUTO) 0.9 X10'3 (0-0.9); MONOCYTES % (AUTO) 4.8 % (2-12); NEUTROPHILS # (AUTO) 18.4 X10'3 (1.8-7.7); NEUTROPHILS % (AUTO) 92.9 % (42-75); PLATELET COUNT 190 X10'3 (140-440); RED BLOOD COUNT 6.09 X10'6 (4.70-6.10); WHITE BLOOD COUNT 19.8 X10'3 (4.5-11.0)
[2023-04-25 08:17] LABS: HEMOGLOBIN 18.4 g/dl (14.0-17.9)
[2023-04-25 08:25] LABS: ALBUMIN 3.4 G/DL (3.4-5.0); ANION GAP 7 (8-16); BLOOD UREA NITROGEN 30 MG/DL (7-18); BUN/CREATININE RATIO 19.5 (10.0-20.0); CALCIUM 8.3 MG/DL (8.5-10.1); CHLORIDE 104 MMOL/L (99-107); CHOL/HDL RATIO 2.4 (0.00-4.99); CHOLESTEROL 99 MG/DL (0-200); CREATININE 1.54 MG/DL (0.60-1.10); GLUCOSE 137 MG/DL (70-104); HDL CHOLESTEROL 42 MG/DL (35-60); LDL CHOLESTEROL 49 MG/DL (50-100); MAGNESIUM 1.9 MG/DL (1.5-2.4); PHOSPHORUS 3.3 MG/DL (2.3-4.5); POTASSIUM 5.4 MMOL/L (3.5-5.1); SODIUM 140 MMOL/L (135-145); TOTAL CARBON DIOXIDE 28.8 MMOL/L (24-32); TRIGLYCERIDES 20 MG/DL (20-135); eCRCL 51 ML/MIN; eGFR 45 ML/MIN
[2023-04-25] MEDS: piperacillin/tazo 3.375gm/50ml 50 ML IV SCH (09:57)
[2023-04-25] MEDS ORDERED: TRAZ-251 PO (12:23)
[2023-04-25] MEDS: pneumococcal 23-VAL P-sac vacc 25 mcg/0.5ml vial IMVAC ONE (13:05)
[2023-04-25] MEDS: HALLS - SOOTHE MENTHOL 1.8 MG cough drop LOZENGE MM PRN (14:58)
[2023-04-25] MEDS ORDERED: zolpidem 5mg tablet PO PRN (18:50)
[2023-04-25] MEDS: normal saline 1000ml 1,000 ML IV SCH (20:23)
[2023-04-25] MEDS: traZODone 50mg tablet PO SCH (21:00)
[2023-04-26 05:56] VITALS: BP 147/92; PULSE 68; RESP 18; TEMP 96.9; O2SAT 95
[2023-04-26 07:35] VITALS: RESP 20
[2023-04-26 08:00] LABS: BASOPHILS % (AUTO) 0.2 % (0-1); EOSINOPHILS # (AUTO) 0.2 X10'3 (0-0.9); EOSINOPHILS % (AUTO) 1.2 % (0-6); LYMPHOCYTES # (AUTO) 0.9 X10'3 (1.1-4.8); LYMPHOCYTES % (AUTO) 5.9 % (21-51); MEAN CORPUSCULAR HEMOGLOBIN 30.5 PG (27.0-31.0); MEAN CORPUSCULAR HGB CONC 32.8 g/dL (33.0-36.5); MEAN PLATELET VOLUME 9.5 FL (7.4-10.4); MONOCYTES # (AUTO) 1.2 X10'3 (0-0.9); MONOCYTES % (AUTO) 7.3 % (2-12); NEUTROPHILS # (AUTO) 13.5 X10'3 (1.8-7.7); NEUTROPHILS % (AUTO) 85.4 % (42-75); PLATELET COUNT 206 X10'3 (140-440); RED BLOOD COUNT 6.52 X10'6 (4.70-6.10); RED CELL DISTRIBUTION WIDTH 17.2 % (11.5-14.5); WHITE BLOOD COUNT 15.7 X10'3 (4.5-11.0)
[2023-04-26] MEDS: tamsulosin 0.4mg capsule PO SCH (08:00)
[2023-04-26] MEDS: finasteride 5mg tablet PO SCH (08:00)
[2023-04-26 08:05] LABS: HEMATOCRIT 60.6 % (42.0-52.0); HEMOGLOBIN 19.9 g/dl (14.0-17.9)
[2023-04-26 08:24] LABS: ALBUMIN 3.7 G/DL (3.4-5.0); ANION GAP 9 (8-16); BLOOD UREA NITROGEN 33 MG/DL (7-18); BUN/CREATININE RATIO 21.7 (10.0-20.0); CALCIUM 8.9 MG/DL (8.5-10.1); CHLORIDE 102 MMOL/L (99-107); CREATININE 1.52 MG/DL (0.60-1.10); GLUCOSE 85 MG/DL (70-104); MAGNESIUM 2.3 MG/DL (1.5-2.4); PHOSPHORUS 2.7 MG/DL (2.3-4.5); POTASSIUM 5.1 MMOL/L (3.5-5.1); SODIUM 141 MMOL/L (135-145); TOTAL CARBON DIOXIDE 30.4 MMOL/L (24-32); eCRCL 52 ML/MIN; eGFR 46 ML/MIN
[2023-04-26] MEDS: modafinil 100mg tablet PO SCH (09:41)
[2023-04-26 11:29] VITALS: BP 148/83; PULSE 82; RESP 20; TEMP 98.9; O2SAT 95
[2023-04-26 20:00] VITALS: RESP 18; O2SAT 94
[2023-04-26 22:00] VITALS: BP 144/93; PULSE 83; RESP 18; TEMP 97.3; O2SAT 91
[2023-04-26 23:01] VITALS: PULSE 82; RESP 18; O2SAT 92
[2023-04-27] VITALS (10 sets, daily range): BP systolic 142–185; BP diastolic 80–96; PULSE 72–94; RESP 16–20; TEMP 97.1–97.9; O2SAT 91–96
[2023-04-27 06:57] LABS: BASOPHILS % (AUTO) 0.3 % (0-1); EOSINOPHILS # (AUTO) 0.3 X10'3 (0-0.9); EOSINOPHILS % (AUTO) 2.2 % (0-6); HEMATOCRIT 53.9 % (42.0-52.0); LYMPHOCYTES # (AUTO) 0.9 X10'3 (1.1-4.8); LYMPHOCYTES % (AUTO) 7.2 % (21-51); MEAN CORPUSCULAR HEMOGLOBIN 30.5 PG (27.0-31.0); MEAN CORPUSCULAR HGB CONC 33.3 g/dL (33.0-36.5); MEAN CORPUSCULAR VOLUME 91.6 FL (78-98); MEAN PLATELET VOLUME 9.3 FL (7.4-10.4); MONOCYTES # (AUTO) 1.1 X10'3 (0-0.9); MONOCYTES % (AUTO) 9.3 % (2-12); NEUTROPHILS # (AUTO) 9.7 X10'3 (1.8-7.7); PLATELET COUNT 191 X10'3 (140-440); RED BLOOD COUNT 5.89 X10'6 (4.70-6.10); RED CELL DISTRIBUTION WIDTH 16.7 % (11.5-14.5)
[2023-04-27] MEDS: mag hydrox/Alum hydrox/simeth 30ml oral suspension PO PRN (08:31)
[2023-04-27 08:35] LABS: ALBUMIN 3.3 G/DL (3.4-5.0); ANION GAP 8 (8-16); BLOOD UREA NITROGEN 29 MG/DL (7-18); BUN/CREATININE RATIO 18.6 (10.0-20.0); CALCIUM 8.2 MG/DL (8.5-10.1); CHLORIDE 103 MMOL/L (99-107); CREATININE 1.56 MG/DL (0.60-1.10); GLUCOSE 105 MG/DL (70-104); MAGNESIUM 2.2 MG/DL (1.5-2.4); PHOSPHORUS 2.5 MG/DL (2.3-4.5); POTASSIUM 4.3 MMOL/L (3.5-5.1); SODIUM 140 MMOL/L (135-145); TOTAL CARBON DIOXIDE 28.6 MMOL/L (24-32); eCRCL 50 ML/MIN; eGFR 45 ML/MIN
[2023-04-27] MEDS: ondansetron/PF 4mg/2ml inj IV PRN (08:42)
[2023-04-27] MEDS: losartan 50mg tablet PO SCH (17:24)
[2023-04-28 06:00] VITALS: BP 168/84; PULSE 76; RESP 16; TEMP 97.7; O2SAT 95
[2023-04-28 06:54] LABS: BASOPHILS % (AUTO) 0.4 % (0-1); EOSINOPHILS # (AUTO) 0.3 X10'3 (0-0.9); EOSINOPHILS % (AUTO) 3.4 % (0-6); HEMATOCRIT 51.3 % (42.0-52.0); HEMOGLOBIN 17.2 g/dl (14.0-17.9); LYMPHOCYTES # (AUTO) 0.8 X10'3 (1.1-4.8); LYMPHOCYTES % (AUTO) 7.9 % (21-51); MEAN CORPUSCULAR HEMOGLOBIN 30.7 PG (27.0-31.0); MEAN CORPUSCULAR HGB CONC 33.6 g/dL (33.0-36.5); MEAN CORPUSCULAR VOLUME 91.3 FL (78-98); MEAN PLATELET VOLUME 8.9 FL (7.4-10.4); MONOCYTES # (AUTO) 0.9 X10'3 (0-0.9); MONOCYTES % (AUTO) 8.5 % (2-12); NEUTROPHILS # (AUTO) 8.1 X10'3 (1.8-7.7); NEUTROPHILS % (AUTO) 79.8 % (42-75); PLATELET COUNT 192 X10'3 (140-440); RED BLOOD COUNT 5.62 X10'6 (4.70-6.10); RED CELL DISTRIBUTION WIDTH 16.5 % (11.5-14.5); WHITE BLOOD COUNT 10.2 X10'3 (4.5-11.0)
[2023-04-28 07:12] LABS: ALBUMIN 2.6 G/DL (3.4-5.0); ANION GAP 5 (8-16); BLOOD UREA NITROGEN 21 MG/DL (7-18); BUN/CREATININE RATIO 18.3 (10.0-20.0); CHLORIDE 107 MMOL/L (99-107); CREATININE 1.15 MG/DL (0.60-1.10); GLUCOSE 91 MG/DL (70-104); MAGNESIUM 2.3 MG/DL (1.5-2.4); PHOSPHORUS 1.8 MG/DL (2.3-4.5); POTASSIUM 4.2 MMOL/L (3.5-5.1); SODIUM 140 MMOL/L (135-145); TOTAL CARBON DIOXIDE 27.6 MMOL/L (24-32); eCRCL 68 ML/MIN; eGFR 63 ML/MIN
[2023-04-28 08:00] VITALS: RESP 16; RESP 18; O2SAT 94
[2023-04-28 10:00] VITALS: BP_SYST 120; BP_SYST 165; BP_DIAS 63; BP_DIAS 91; PULSE 71; RESP 16; TEMP 98; O2SAT 93; O2SAT 96
[2023-04-28] MEDS ORDERED: AMOX-117 PO (10:14)
[2023-04-28] MEDS ORDERED: LACT1CAP76 PO (10:15)
[2023-04-28] MEDS ORDERED: HYDR-3972 PO (10:35)
== END 2023-04-28 14:25 | disposition home or self-care (01) | DRG 853 ==
LOC: ER 16:50 → ED HOLD 19:59 → ORTHO 4S 23:25
PROVIDERS: ADMIT Internal Medicine Critical Care Medicine; ATTEND Family Medicine
PROC: 0W9J40Z Drainage of Pelvic Cavity with Drainage Device, Percutaneous Endoscopic Approach (ICD-10-PCS; 2023-04-24)
PROC: 0D9670Z Drainage of Stomach with Drainage Device, Via Natural or Artificial Opening (ICD-10-PCS; 2023-04-24)
PROC: 0DTJ4ZZ Resection of Appendix, Percutaneous Endoscopic Approach (ICD-10-PCS; principal; 2023-04-24 21:31)
DX: A41.9 Sepsis, unspecified organism (principal); K35.211 Acute appendicitis with generalized peritonitis, with perforation and abscess; N17.0 Acute kidney failure with tubular necrosis; K56.609 Unspecified intestinal obstruction, unspecified as to partial versus complete obstruction; I10 Essential (primary) hypertension; E11.9 Type 2 diabetes mellitus without complications; G89.29 Other chronic pain; D75.1 Secondary polycythemia; E87.5 Hyperkalemia; N40.0 Benign prostatic hyperplasia without lower urinary tract symptoms; M54.9 Dorsalgia, unspecified; G47.33 Obstructive sleep apnea (adult) (pediatric); Z88.5 Allergy status to narcotic agent; Z79.899 Other long term (current) drug therapy; Z79.84 Long term (current) use of oral hypoglycemic drugs
CPT/HCPCS: 99291; 99292; Z7506; Z7508; 36415; 74018; 74022; 74176; 80048; 80061; 81001; 82948; 83036; 83605; 83690; 83735; 84100; 84145; 84484; 85025; 85610; 86885; 86900; 86901; 87040; 87081; 87088; 93005; 94760; 97161; 97530; A4215; A4615; A4618; A6449; A7000; C9290; G0378; J0131; J0694; J1100; J1170; J1815; J2250; J2405; J2543; J2704; J2710; J3010; J3490; J7030; J7120

== ENCOUNTER 2023-05-22 00:33 | Inpatient (IN) | payer BC, MEDICARE ==
[~2023-05-22] VITALS: Ht 190.5 cm; Wt 130.1 kg
[~2023-05-22 00:33] MED LIST changes: -CEFD300C3 PO; -CEPH-585 PO; +HYDR-3972 PO; +LACT1CAP76 PO; -NIRM1TAB PO; +TRAZ-251 PO
[2023-05-22] MEDS: normal saline 1000ml 1,000 ML IV ONE (01:19)
[2023-05-22 01:20] LABS: BASOPHILS # (AUTO) 0.1 X10'3 (0-0.2); LYMPHOCYTES # (AUTO) 1.7 X10'3 (1.1-4.8)
[2023-05-22 01:22] LABS: BASOPHILS % (AUTO) 0.7 % (0-1); EOSINOPHILS # (AUTO) 0.2 X10'3 (0-0.9); EOSINOPHILS % (AUTO) 2.4 % (0-6); HEMOGLOBIN 17.9 g/dl (14.0-17.9); LYMPHOCYTES % (AUTO) 17.2 % (21-51); MEAN CORPUSCULAR HEMOGLOBIN 30.5 PG (27.0-31.0); MEAN CORPUSCULAR HGB CONC 33.7 g/dL (33.0-36.5); MEAN CORPUSCULAR VOLUME 90.4 FL (78-98); MEAN PLATELET VOLUME 9.6 FL (7.4-10.4); MONOCYTES # (AUTO) 0.9 X10'3 (0-0.9); MONOCYTES % (AUTO) 8.7 % (2-12); NEUTROPHILS # (AUTO) 7.1 X10'3 (1.8-7.7); PLATELET COUNT 210 X10'3 (140-440); RED BLOOD COUNT 5.86 X10'6 (4.70-6.10); RED CELL DISTRIBUTION WIDTH 16.5 % (11.5-14.5)
[2023-05-22 01:39] LABS: ALBUMIN 3.6 G/DL (3.4-5.0); ANION GAP 9 (8-16); BLOOD UREA NITROGEN 23 MG/DL (7-18); BUN/CREATININE RATIO 17.2 (10.0-20.0); CALCIUM 8.9 MG/DL (8.5-10.1); CHLORIDE 107 MMOL/L (99-107); CREATININE 1.34 MG/DL (0.60-1.10); GLUCOSE 122 MG/DL (70-104); MAGNESIUM 2.1 MG/DL (1.5-2.4); POTASSIUM 4.9 MMOL/L (3.5-5.1); SODIUM 143 MMOL/L (135-145); TOTAL CARBON DIOXIDE 27.4 MMOL/L (24-32); eCRCL 64 ML/MIN; eGFR 53 ML/MIN
[2023-05-22] MEDS: diatr meglu/diatrizoate 30ml oral sol.-(3 dose) bottle PO SCH (01:39)
[2023-05-22] MEDS: piperacillin/tazo 4.5gm/100ml 100 ML IV SCH (02:23)
[2023-05-22] MEDS ORDERED: iohexol 300mg/ml 100ml inj. ONE (02:24)
[2023-05-22] MEDS: HYDROmorphone inj. 0.5 MG/0.5 ML DISP.SYRIN IV ONE (02:54)
[2023-05-22] MEDS: VANCOMYCIN 1,500MG inj. 1,500 MG in normal saline 500ml IV soln 300 ML IV SCH (03:13)
[2023-05-22] MEDS: normal saline 1000ML IV soln IVB ONE (03:18)
[2023-05-22] MEDS: ondansetron/PF 4mg/2ml inj IV ONE (04:46)
[2023-05-22] MEDS: metoclopramide 5 mg/ml inj IV ONE (05:23)
[2023-05-22] MEDS ORDERED: ondansetron/PF 4mg/2ml inj IV PRN (05:40)
[2023-05-22] MEDS ORDERED: magnesium Cl slow-release 64mg tablet PO PRN (05:40)
[2023-05-22] MEDS ORDERED: mag hydrox/Alum hydrox/simeth 30ml oral suspension PO PRN (05:40)
[2023-05-22] MEDS ORDERED: acetaminophen 325mg tablet PO PRN (05:40)
[2023-05-22] MEDS ORDERED: magnesium 2GM in 50ml NS 50 ML IV PRN (05:40)
[2023-05-22] MEDS ORDERED: magnesium 4gm in 100ml NS 100 ML IV PRN (05:40)
[2023-05-22] MEDS ORDERED: magnesium hydroxide 30ml (MOM) UD suspension PO PRN (05:40)
[2023-05-22] MEDS ORDERED: potassium Cl 40MEQ/1/2NS 520ml 520 ML IV PRN (05:40)
[2023-05-22] MEDS ORDERED: potassium Cl 20 mEq SR tablet PO PRN ×2 (05:40)
[2023-05-22 05:41] LABS: BILIRUBIN,URINE NEGATIVE (Neg); CLARITY,URINE CLEAR (Clear); COLOR,URINE STRAW (Yellow); GLUCOSE, URINE NEGATIVE (Neg); KETONES,URINE NEGATIVE (Neg); LEUKOCYTE ESTERASE ,URINE NEGATIVE (Neg); NITRITES, URINE NEGATIVE (Neg); OCCULT BLOOD,URINE NEGATIVE (Neg); PROTEIN,URINE NEGATIVE (Neg); UROBILINOGEN,URINE 0.2 E.U/dL (0.2-1.0)
[2023-05-22] MEDS ORDERED: HYDROcodone/acetaminophen 10/325mg tab PO PRN (05:45)
[2023-05-22 05:48] LABS: UA COLLECTION TYPE CLN CATCH MIDSTREAM
[2023-05-22] MEDS ORDERED: diazepam 5mg tablet PO PRN ×2 (05:55→06:00)
[2023-05-22] MEDS: normal saline 1000ml 1,000 ML IV SCH (06:01)
[2023-05-22 07:00] VITALS: TEMP 98.2
[2023-05-22] MEDS: metFORMIN 500mg tablet PO SCH (08:00)
[2023-05-22] MEDS: heparin, porcine 5000 units/ml vial SQ SCH (08:00)
[2023-05-22] MEDS: K and/or MAG REPLACEMENT MC SCH (08:00)
[2023-05-22] MEDS: lactobacillus rhamnosus 10,000 MMU CELLS/CAPSULE PO SCH (08:53)
[2023-05-22] MEDS: docusate sod 100mg capsule PO SCH (08:53)
[2023-05-22] MEDS: modafinil 100mg tablet PO SCH (08:54)
[2023-05-22] MEDS: losartan 50mg tablet PO SCH (09:02)
[2023-05-22 09:03] VITALS: BP 152/84; PULSE 62; RESP 16; O2SAT 98
[2023-05-22] MEDS: piperacillin/tazo 3.375gm/50ml 50 ML IV SCH (10:00)
[2023-05-22] MEDS: amox tr/potassium clavulanate 875/125mg TAB PO ONE (11:05)
[2023-05-22] MEDS ORDERED: AMOX-117 PO (11:05)
[2023-05-22] MEDS ORDERED: vancomycin/NS 1 GM ADD-VANTAGE 250 ML IV SCH (15:00)
[2023-05-22] MEDS ORDERED: VANCOmycin 1250MG/NS 250ml Bag 250 ML IV SCH (15:00)
[2023-05-22] MEDS ORDERED: amox tr/potassium clavulanate 875/125mg TAB PO SCH (17:30)
[2023-05-22] MEDS ORDERED: traZODone 50mg tablet PO SCH (21:00)
[2023-05-23] MEDS ORDERED: VANCOMYCIN LEVEL IV ONE (14:30)
== END 2023-05-22 13:24 | disposition home or self-care (01) | DRG 920 ==
LOC: ER 00:34 → ED HOLD 05:43
PROVIDERS: ADMIT Internal Medicine; ATTEND Internal Medicine
PROC: BW201ZZ Computerized Tomography (CT Scan) of Abdomen using Low Osmolar Contrast (ICD-10-PCS; principal; 2023-05-22)
DX: L76.32 Postprocedural hematoma of skin and subcutaneous tissue following other procedure (principal); L03.311 Cellulitis of abdominal wall; T81.41XA Infection following a procedure, superficial incisional surgical site, initial encounter; L03.316 Cellulitis of umbilicus; I10 Essential (primary) hypertension; G47.30 Sleep apnea, unspecified; N40.0 Benign prostatic hyperplasia without lower urinary tract symptoms; E11.9 Type 2 diabetes mellitus without complications; G89.29 Other chronic pain; Y83.6 Removal of other organ (partial) (total) as the cause of abnormal reaction of the patient, or of later complication, without mention of misadventure at the time of the procedure; Z90.49 Acquired absence of other specified parts of digestive tract; Z88.5 Allergy status to narcotic agent; Z88.6 Allergy status to analgesic agent; Z88.8 Allergy status to other drugs, medicaments and biological substances; Z79.899 Other long term (current) drug therapy; Z87.440 Personal history of urinary (tract) infections; Y92.89 Other specified places as the place of occurrence of the external cause
CPT/HCPCS: 36415; 71045; 74177; 80048; 81003; 82948; 83735; 84145; 85025; 87040; 93005; 99285; G0378; J1170; J2405; J2543; J2765; J3370; J3490; J7030; J7040; Q9963; Q9967

== ENCOUNTER 2023-05-24 11:38 | Outpatient (CLI) | payer BC, MEDICARE ==
[~2023-05-24 11:38] MED LIST changes: +AMOX-117 PO; -FINA5TAB11 PO; -FLO0.4C PO; -TRAM50TA2 PO; -ZOLP10TA PO
[2023-05-24 12:35] LABS: BASOPHILS % (AUTO) 0.5 % (0-1); EOSINOPHILS # (AUTO) 0.2 X10'3 (0-0.9); EOSINOPHILS % (AUTO) 3.7 % (0-6); HEMATOCRIT 52.9 % (42.0-52.0); LYMPHOCYTES # (AUTO) 1.2 X10'3 (1.1-4.8); LYMPHOCYTES % (AUTO) 18.6 % (21-51); MEAN CORPUSCULAR HEMOGLOBIN 30.9 PG (27.0-31.0); MEAN CORPUSCULAR VOLUME 90.8 FL (78-98); MEAN PLATELET VOLUME 9.1 FL (7.4-10.4); MONOCYTES # (AUTO) 0.6 X10'3 (0-0.9); MONOCYTES % (AUTO) 8.8 % (2-12); NEUTROPHILS # (AUTO) 4.3 X10'3 (1.8-7.7); NEUTROPHILS % (AUTO) 68.4 % (42-75); PLATELET COUNT 197 X10'3 (140-440); RED BLOOD COUNT 5.82 X10'6 (4.70-6.10); RED CELL DISTRIBUTION WIDTH 16.2 % (11.5-14.5); WHITE BLOOD COUNT 6.3 X10'3 (4.5-11.0)
[2023-05-24 12:52] LABS: HEMOGLOBIN A1C 5.5 % (4.5-6.2)
[2023-05-24 13:14] LABS: ALANINE AMINOTRANSFERASE 30 U/L (12-78); ALBUMIN 3.5 G/DL (3.4-5.0); ALKALINE PHOSPHATASE 57 IU/L (46-116); ANION GAP 5 (8-16); ASPARTATE AMINO TRANSFERASE 18 U/L (10-37); BILIRUBIN,TOTAL 0.5 MG/DL (0.1-1.0); BLOOD UREA NITROGEN 19 MG/DL (7-18); BUN/CREATININE RATIO 14.6 (10.0-20.0); CALCIUM 8.6 MG/DL (8.5-10.1); CHLORIDE 106 MMOL/L (99-107); FREE T4 (FREE THYROXINE) 0.65 NG/DL (0.73-1.40); GLUCOSE 112 MG/DL (70-104); MAGNESIUM 2.1 MG/DL (1.5-2.4); POTASSIUM 4.6 MMOL/L (3.5-5.1); SODIUM 140 MMOL/L (135-145); THYROID STIMULATING HORMONE 3.57 ulU/ml (0.34-4.50); TOTAL CARBON DIOXIDE 28.9 MMOL/L (24-32); eGFR 55 ML/MIN
[2023-05-26 13:49] LABS: ACTH, PLASMA 48.1 pg/mL (7.2-63.3)
[2023-05-27 07:18] LABS: % FREE PSA 20.8 % (.); PROSTATE SPECIFIC AG, SERUM 7.7 ng/mL (0.0-4.0); PSA, FREE 1.6 ng/mL; THIIODOTHRONINE, FREE, SERUM 3.1 pg/mL (2.0-4.4); VITAMIN D, 25-HYDROXY 31.3 ng/mL (30.0-100.0)
== END 2023-05-24 23:59 | disposition home or self-care (01) ==
LOC: LAB 11:38
PROVIDERS: ATTEND Anesthesiology
DX: Z13.21 Encounter for screening for nutritional disorder (principal); R68.89 Other general symptoms and signs; D50.9 Iron deficiency anemia, unspecified; R79.1 Abnormal coagulation profile; R73.01 Impaired fasting glucose; N40.0 Benign prostatic hyperplasia without lower urinary tract symptoms; E55.9 Vitamin D deficiency, unspecified; E29.9 Testicular dysfunction, unspecified; R53.81 Other malaise; R53.83 Other fatigue; E27.40 Unspecified adrenocortical insufficiency; E27.9 Disorder of adrenal gland, unspecified; E34.4 Constitutional tall stature; E02 Subclinical iodine-deficiency hypothyroidism
CPT/HCPCS: 36415; 80053; 82024; 82306; 83036; 83735; 83789; 84153; 84154; 84305; 84410; 84439; 84443; 84481; 84482; 85025

== ENCOUNTER 2024-03-20 09:05 | Outpatient (CLI) | payer BC, MEDICARE ==
[~2024-03-20 09:05] MED LIST changes: -AMOX-117 PO
== END 2024-03-20 23:59 | disposition home or self-care (01) ==
LOC: VAS 09:05
PROVIDERS: ATTEND Family Medicine
DX: I87.2 Venous insufficiency (chronic) (peripheral) (principal)
CPT/HCPCS: 93970

== ENCOUNTER 2024-05-04 16:02 | Outpatient (CLI) | payer BC, MEDICARE | END 2024-05-04 23:59 | disposition home or self-care (01) | LOC: RAD 16:02 | PROVIDERS: ATTEND Family Medicine | DX: R07.81 Pleurodynia (principal) | CPT/HCPCS: 71101 ==